=== PATIENT | male | born 1950 | race Two or more races ===

== ENCOUNTER 2020-06-23 11:02 | Inpatient (IN) | payer MEDICARE, OTHER ==
[2020-06-23] VITALS (29 sets, daily range): BP systolic 48–159; BP diastolic 31–74
[~2020-06-23] VITALS: Ht 182.9 cm; Wt 86.9 kg
[2020-06-23] MEDS ORDERED: IV NORMAL SALINE 1000ML BAG 1,000 ML IV ONE (11:15)
[2020-06-23] MEDS ORDERED: MIDAZOLAM HCL/PF 5 MG/5 ML VIAL. IV ONE (11:15)
[2020-06-23] MEDS ORDERED: VECURONIUM BROMIDE 50 MG in TOTAL VOLUME 50 ML IV PRN (11:15)
[2020-06-23] MEDS: NOREPINEPHRINE VIAL 8 MG in IV DEXTROSE 5% 250 ML IV PRN (11:48)
[2020-06-23] MEDS: MIDAZOLAM 100mg/100ml NS BAG 100 ML IV PRN ×2 (11:48→22:40)
[2020-06-23] MEDS: CHLORHEXIDINE 0.12% 15 ML MOUTHWASH. MM SCH ×2 (12:00→21:21)
[2020-06-23] MEDS ORDERED: ACETAMINOPHEN 650 MG/20.3 ML SOLUTION. PEG PRN (12:30)
[2020-06-23 12:36] LABS: HEMATOCRIT 35.5 % (39.0-53.0); HEMOGLOBIN 11.9 g/dL (13.0-17.5); RED BLOOD COUNT 3.75 x10^6/uL (4.30-5.70); RED CELL DISTRIBUTION WIDTH 14.8 % (11.5-14.5)
--- NOTE | 2020-06-23 12:40 | PDOC ---
Date and Time Called for central linefor fluids/meds Covid+ On ventilator and sedation Chlorasept prep, large drape N95m Eye protection, double gloved R subclavian 1st attempt Wire 3 lumen. Sutured at 16cm, biopatch and sterile dressing CXR ordered Current Medications Current Medications Norepinephrine Bitartrate 8 mg/ Dextrose 258 ml @ 16.641 mls/ hr CONT PRN IV PER PROTOCOL Last administered on 06/23/20at 11:48; Start 06/23/20 at 11:15 Midazolam HCl (Versed) 5 mg 1X ONCE IV Last administered on 06/23/20at 11:48; Start 06/23/20 at 11:15; Stop 06/23/20 at 11:18; Status DC Sodium Chloride 1,000 ml @ 1,000 mls/hr 1X ONCE IV Last administered on 06/23/20at 11:51; Start 06/23/20 at 11:15; Stop 06/23/20 at 12:14; Status DC Vecuronium [place] 50 mg/ Miscellaneous 50 ml @ 4.128 mls/ hr CONT PRN IV SEE I/O RECORD; Start 06/23/20 at 11:15 Fentanyl Citrate 30 ml @ 0 mls/hr CONT PRN IV SEE PROTOCOL Last administered on 06/23/20at 11:46; Start 06/23/20 at 11:15 Chlorhexidine Gluconate (Peridex) 15 ml BID MM ; Start 06/23/20 at 12:00 Midazolam HCl 100 ml @ 0 mls/hr CONT PRN IV SEE PROTOCOL Last administered on 06/23/20at 11:48; Start 06/23/20 at 11:15 Methylprednisolone Sodium Succinate (SOLU-Medrol 125MG VIAL) 125 mg Q8HRS IV ; Start 06/23/20 at 14:00 Enoxaparin Sodium (Lovenox 40mg Syringe) 40 mg Q24H SQ ; Start 06/23/20 at 12:30; Status UNV Divalproex Sodium (Depakote) 125 mg BID PO ; Start 06/23/20 at 21:00; Status UNV Quetiapine Fumarate (SEROquel) 150 mg BID PO ; Start 06/23/20 at 21:00; Status UNV Pramipexole Dihydrochloride (miraPEX) 0.5 mg BID PO ; Start 06/23/20 at 21:00; Status UNV Acetaminophen (Tylenol) 650 mg Q4H PRN PEG MILD PAIN / TEMP > 100.3'F; Start 06/23/20 at 12:30; Status UNV LAST VITALS Vital Signs Date Time Temp Pulse Resp B/P (MAP) Pulse Ox O2 Delivery O2 Flow Rate FiO2 06/23/20 11:46 26 06/23/20 10:50 80 Ventilator YANICK GRIFFITH MD Jun 23, 2020 12:40
[2020-06-23] MEDS ORDERED: ASPI-630 PO (12:44)
[2020-06-23] MEDS ORDERED: ACET325T21 PO (12:44)
[2020-06-23 12:46] LABS: BASE EXCESS COOX -4 mmol/L (-3-3); HCO3 COOX 20 mmol/L (21-28); METHEMOGLOBIN 0.3 % (0.0-1.9); OXYHEMOGLOBIN 87.8 %; PCO2 COOX 32 mmHg (35-46); PO2 COOX 58 mmHg (65-108); SAT O2 COOX 88 % (92-99)
[2020-06-23] MEDS ORDERED: CHOL500021 PO (12:46)
[2020-06-23] MEDS ORDERED: DIVA500T2 PO (12:49)
[2020-06-23 12:53] LABS: CALCIUM 7.8 mg/dL (8.5-10.1); CREATININE 1.2 mg/dL (0.7-1.3); GFR 59.7; POTASSIUM 4.4 mmol/L (3.5-5.1)
[2020-06-23] MEDS ORDERED: SIMV40TA18 PO (12:55)
[2020-06-23] MEDS ORDERED: FINA5TAB4 PO (12:55)
[2020-06-23] MEDS ORDERED: MIRT15TA PO (12:55)
[2020-06-23] MEDS ORDERED: FLUO40CA2 PO (12:55)
[2020-06-23] MEDS ORDERED: MEMA10TA PO (12:55)
[2020-06-23] MEDS ORDERED: DONE10TA61 PO (12:55)
[2020-06-23] MEDS ORDERED: TRAZ-123 PO (12:55)
[2020-06-23] MEDS ORDERED: PRAM0.255 PO (12:55)
[2020-06-23] MEDS ORDERED: QUET400T52 PO (12:55)
[2020-06-23] MEDS ORDERED: OLAN2.5T3 PO (12:55)
[2020-06-23] MEDS: DIVALPROEX DELAYED RELEASE 250 MG TABLET.DR. PO SCH ×2 (13:00→21:00)
[2020-06-23] MEDS ORDERED: ENOXAPARIN 40 MG/0.4 ML SYRINGE. SQ SCH ×2 (13:00→21:00)
[2020-06-23 13:06] LABS: ALBUMIN 1.6 g/dL (3.4-5.0); ALBUMIN/GLOBULIN RATIO 0.3 (1.0-1.7); TOTAL BILIRUBIN 0.7 mg/dL (0.2-1.0); TOTAL PROTEIN 6.2 g/dL (6.4-8.2)
[2020-06-23] MEDS ORDERED: PIP/TAZO PER PHARMACY MC PRN (13:15)
--- NOTE | 2020-06-23 13:40 | RAD ---
CHEST AP ONLY 06/23/2020 12:17 PM INDICATION: Intubated COMPARISON: 06/23/2020 TECHNIQUE: Portable frontal view of the chest is provided. FINDINGS: The cardiomediastinal silhouette is similar in appearance. Endotracheal tube terminates 4.4 cm above the level of the pretty. Right upper extremity PICC is identified with the distal tip projecting over the proximal superior vena cava. Nasogastric tube is identified within distal tip terminating in the stomach. Small right pleural effusion. Trace left pleural effusion. There is adjacent compressive atelectasis versus infiltrate. Moderate to advanced pulmonary vascular congestion. No pneumothorax. There is ill-definition of the aortic knob, improved since the prior examination. No suspicious osseous abnormality. IMPRESSION: Endotracheal tube, right upper extremity PICC and nasogastric tube are in similar position. Ulceration of findings may be seen with congestive heart failure. Ill-definition along the aortic knob appears improving. Electronically signed by: Jackie Chavez MD (06/23/2020 1:37 PM) [id number]
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
--- NOTE | 2020-06-23 13:45 | NUR ---
spoke with the patients with Odell ROGERS. She stated that she did not want CPR, medication, or shock but would like for him to remain on the vent for a while to see if he can recover. Dr Jackson made aware of her decision.
--- NOTE | 2020-06-23 14:10 | PDOC ---
Date and Time CXR. Tip in SVC, no pneumothorax Current Medications Current Medications Norepinephrine Bitartrate 8 mg/ Dextrose 258 ml @ 16.641 mls/ hr CONT PRN IV PER PROTOCOL Last administered on 06/23/20at 11:48; Start 06/23/20 at 11:15 Midazolam HCl (Versed) 5 mg 1X ONCE IV Last administered on 06/23/20at 11:48; Start 06/23/20 at 11:15; Stop 06/23/20 at 11:18; Status DC Sodium Chloride 1,000 ml @ 1,000 mls/hr 1X ONCE IV Last administered on 06/23/20at 11:51; Start 06/23/20 at 11:15; Stop 06/23/20 at 12:14; Status DC Vecuronium [place] 50 mg/ Miscellaneous 50 ml @ 4.128 mls/ hr CONT PRN IV SEE I/O RECORD; Start 06/23/20 at 11:15 Fentanyl Citrate 30 ml @ 0 mls/hr CONT PRN IV SEE PROTOCOL Last administered on 06/23/20at 11:46; Start 06/23/20 at 11:15 Chlorhexidine Gluconate (Peridex) 15 ml BID MM ; Start 06/23/20 at 12:00 Midazolam HCl 100 ml @ 0 mls/hr CONT PRN IV SEE PROTOCOL Last administered on 06/23/20at 11:48; Start 06/23/20 at 11:15 Methylprednisolone Sodium Succinate (SOLU-Medrol 125MG VIAL) 125 mg Q8HRS IV ; Start 06/23/20 at 14:00 Enoxaparin Sodium (Lovenox 40mg Syringe) 40 mg Q24H SQ ; Start 06/23/20 at 13:00; Stop 06/23/20 at 13:18; Status DC Divalproex Sodium (Depakote) 125 mg BID PO ; Start 06/23/20 at 13:00 Quetiapine Fumarate (SEROquel) 150 mg BID PO ; Start 06/23/20 at 21:00 Pramipexole Dihydrochloride (miraPEX) 0.5 mg BID PO ; Start 06/23/20 at 21:00 Acetaminophen (Tylenol) 650 mg Q4H PRN PEG MILD PAIN / TEMP > 100.3'F; Start 06/23/20 at 12:30 Piperacillin Sod/ Tazobactam Sod (Zosyn Per Pharmacy) 1 each PRN DAILY PRN MC SEE COMMENTS; Start 06/23/20 at 13:15 Piperacillin Sod/ Tazobactam Sod 3.375 gm/Sodium Chloride 50 ml @ 100 mls/hr Q6HRS IV ; Start 06/23/20 at 13:30 Enoxaparin Sodium (Lovenox 40mg Syringe) 40 mg BID SQ ; Start 06/23/20 at 21:00 Active Scripts Active Reported Trazodone Hcl 100 Mg Tablet 100 Mg PO HS Simvastatin 40 Mg Tablet 40 Mg PO HS Quetiapine Fumarate ER (Quetiapine Fumarate) 400 Mg Tab.er.24h 150 Mg PO BID Mirapex (Pramipexole Di-Hcl) 0.25 Mg Tablet 0.5 Mg PO BID Zyprexa (Olanzapine) 2.5 Mg Tablet 2.5 Mg PO DAILY Remeron (Mirtazapine) 15 Mg Tablet 7.5 Mg PO DAILY Namenda (Memantine Hcl) 10 Mg Tablet 10 Mg PO DAILY Fluoxetine Hcl 40 Mg Capsule 40 Mg PO DAILY Finasteride 5 Mg Tablet 5 Mg PO DAILY Aricept (Donepezil Hcl) 10 Mg Tablet 1 Tab PO QHS 30 Days Depakote (Divalproex Sodium) 500 Mg Tablet.dr 125 Mg PO DAILY D3-50 (Cholecalciferol (Vitamin D3)) 50,000 Unit Capsule 50,000 Unit PO WEEKLY Aspirin 81 Mg Tab.chew 1 Tab PO DAILY Acetaminophen 325 Mg Tablet 2 Tab PO PRN Q4-6HRS PRN 24 Days Pertinent Labs/Test Laboratory Tests Test 06/23/20 12:30 06/23/20 12:40 White Blood Count 9.0 x10^3/uL (4.0-11.0) Red Blood Count 3.75 x10^6/uL (4.30-5.70) Hemoglobin 11.9 g/dL (13.0-17.5) Hematocrit 35.5 % (39.0-53.0) Mean Corpuscular Volume 95 fL (79-100) Mean Corpuscular Hemoglobin 32 pg (25-35) Mean Corpuscular Hemoglobin Concent 33 g/dL (31-37) Red Cell Distribution Width 14.8 % (11.5-14.5) Platelet Count 172 x10^3/uL (140-400) Sodium Level 144 mmol/L (136-145) Potassium Level 4.4 mmol/L (3.5-5.1) Chloride Level 109 mmol/L (98-107) Carbon Dioxide Level 23 mmol/L (21-32) Anion Gap 12 (6-14) Blood Urea Nitrogen 30 mg/dL (8-26) Creatinine 1.2 mg/dL (0.7-1.3) Estimated GFR (Cockcroft-Gault) 59.7 BUN/Creatinine Ratio 25 (6-20) Glucose Level 136 mg/dL (70-99) Lactic Acid Level 3.3 mmol/L (0.4-2.0) Calcium Level 7.8 mg/dL (8.5-10.1) Total Bilirubin 0.7 mg/dL (0.2-1.0) Aspartate Amino Transf (AST/SGOT) 201 U/L (15-37) Alanine Aminotransferase (ALT/SGPT) 165 U/L (16-63) Alkaline Phosphatase 165 U/L (46-116) C-Reactive Protein, Quantitative 339.8 mg/L (0-3.3) Total Protein 6.2 g/dL (6.4-8.2) Albumin 1.6 g/dL (3.4-5.0) Albumin/Globulin Ratio 0.3 (1.0-1.7) O2 Saturation 88 % (92-99) Arterial Blood pH 7.41 (7.35-7.45) Arterial Blood pCO2 at Patient Temp 32 mmHg (35-46) Arterial Blood pO2 at Patient Temp 58 mmHg (65-108) Arterial Blood HCO3 20 mmol/L (21-28) Arterial Blood Base Excess -4 mmol/L (-3-3) Oxyhemoglobin 87.8 % Methemoglobin 0.3 % (0.0-1.9) Carbon Monoxide, Quantitative 0.3 % (0.0-1.9) FiO2 100 Laboratory Tests Test 06/23/20 12:30 06/23/20 12:40 White Blood Count 9.0 x10^3/uL (4.0-11.0) Red Blood Count 3.75 x10^6/uL (4.30-5.70) Hemoglobin 11.9 g/dL (13.0-17.5) Hematocrit 35.5 % (39.0-53.0) Mean Corpuscular Volume 95 fL (79-100) Mean Corpuscular Hemoglobin 32 pg (25-35) Mean Corpuscular Hemoglobin Concent 33 g/dL (31-37) Red Cell Distribution Width 14.8 % (11.5-14.5) Platelet Count 172 x10^3/uL (140-400) Sodium Level 144 mmol/L (136-145) Potassium Level 4.4 mmol/L (3.5-5.1) Chloride Level 109 mmol/L (98-107) Carbon Dioxide Level 23 mmol/L (21-32) Anion Gap 12 (6-14) Blood Urea Nitrogen 30 mg/dL (8-26) Creatinine 1.2 mg/dL (0.7-1.3) Estimated GFR (Cockcroft-Gault) 59.7 BUN/Creatinine Ratio 25 (6-20) Glucose Level 136 mg/dL (70-99) Lactic Acid Level 3.3 mmol/L (0.4-2.0) Calcium Level 7.8 mg/dL (8.5-10.1) Total Bilirubin 0.7 mg/dL (0.2-1.0) Aspartate Amino Transf (AST/SGOT) 201 U/L (15-37) Alanine Aminotransferase (ALT/SGPT) 165 U/L (16-63) Alkaline Phosphatase 165 U/L (46-116) C-Reactive Protein, Quantitative 339.8 mg/L (0-3.3) Total Protein 6.2 g/dL (6.4-8.2) Albumin 1.6 g/dL (3.4-5.0) Albumin/Globulin Ratio 0.3 (1.0-1.7) O2 Saturation 88 % (92-99) Arterial Blood pH 7.41 (7.35-7.45) Arterial Blood pCO2 at Patient Temp 32 mmHg (35-46) Arterial Blood pO2 at Patient Temp 58 mmHg (65-108) Arterial Blood HCO3 20 mmol/L (21-28) Arterial Blood Base Excess -4 mmol/L (-3-3) Oxyhemoglobin 87.8 % Methemoglobin 0.3 % (0.0-1.9) Carbon Monoxide, Quantitative 0.3 % (0.0-1.9) FiO2 100 LAST VITALS Vital Signs Date Time Temp Pulse Resp B/P (MAP) Pulse Ox O2 Delivery O2 Flow Rate FiO2 06/23/20 12:53 91 Ventilator 06/23/20 12:30 93 119/68 (85) 06/23/20 11:46 26 06/23/20 11:00 97.8 97.8 YANICK GRIFFITH MD Jun 23, 2020 14:10
[2020-06-23] MEDS: PIPERACILLIN/TAZOBACTAM 3.375 GM in IV NORMAL SALINE 50ML 50 ML IV SCH ×2 (14:19→20:20)
[2020-06-23] MEDS: methylPREDNISolone SOD SUCC PF 125 MG/2 ML VIAL. IV SCH ×2 (14:19→21:21)
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
[2020-06-23] MEDS: QUEtiapine 100 MG TABLET. PO SCH (21:21)
[2020-06-23] MEDS: PRAMIPEXOLE 0.25 MG TABLET. PO SCH (21:21)
[2020-06-24] VITALS (25 sets, daily range): BP systolic 92–134; BP diastolic 48–72
[2020-06-24] MEDS: PIPERACILLIN/TAZOBACTAM 3.375 GM in IV NORMAL SALINE 50ML 50 ML IV SCH ×5 (00:05→23:38)
[2020-06-24] MEDS: methylPREDNISolone SOD SUCC PF 125 MG/2 ML VIAL. IV SCH ×3 (06:25→20:46)
[2020-06-24 06:39] LABS: BASO % 0 % (0-3); EOS % 0 % (0-3); HEMATOCRIT 31.2 % (39.0-53.0); HEMOGLOBIN 10.4 g/dL (13.0-17.5); LYMPH # 0.4 x10^3/uL (1.0-4.8); LYMPH % 5 % (24-48); MEAN CORPUSCULAR HEMOGLOBIN 32 pg (25-35); MEAN CORPUSCULAR HGB CONC 33 g/dL (31-37); MEAN CORPUSCULAR VOLUME 95 fL (79-100); MONO # 0.1 x10^3/uL (0.0-1.1); MONO % 2 % (0-9); NEUT # 6.6 x10^3/uL (1.8-7.7); NEUT % 93 % (31-73); PLATELET COUNT 133 x10^3/uL (140-400); RED BLOOD COUNT 3.29 x10^6/uL (4.30-5.70); RED CELL DISTRIBUTION WIDTH 14.9 % (11.5-14.5)
[2020-06-24 06:53] LABS: CALCIUM 7.9 mg/dL (8.5-10.1); CREATININE 1.1 mg/dL (0.7-1.3); MAGNESIUM 2.5 mg/dL (1.8-2.4); POTASSIUM 4.5 mmol/L (3.5-5.1)
--- NOTE | 2020-06-24 07:46 | PDOC ---
Infectious Disease Note Vital Sign Vital Signs Vital Signs Date Time Temp Pulse Resp B/P (MAP) Pulse Ox O2 Delivery O2 Flow Rate FiO2 06/24/20 04:06 95 Ventilator 06/24/20 04:00 97.6 47 18 107/59 (75) 97.6 Labs Lab Laboratory Tests Test 06/23/20 12:30 06/23/20 12:40 06/23/20 15:50 06/24/20 04:45 White Blood Count 9.0 x10^3/uL (4.0-11.0) 7.0 x10^3/uL (4.0-11.0) Red Blood Count 3.75 x10^6/uL (4.30-5.70) 3.29 x10^6/uL (4.30-5.70) Hemoglobin 11.9 g/dL (13.0-17.5) 10.4 g/dL (13.0-17.5) Hematocrit 35.5 % (39.0-53.0) 31.2 % (39.0-53.0) Mean Corpuscular Volume 95 fL (79-100) 95 fL (79-100) Mean Corpuscular Hemoglobin 32 pg (25-35) 32 pg (25-35) Mean Corpuscular Hemoglobin Concent 33 g/dL (31-37) 33 g/dL (31-37) Red Cell Distribution Width 14.8 % (11.5-14.5) 14.9 % (11.5-14.5) Platelet Count 172 x10^3/uL (140-400) 133 x10^3/uL (140-400) D-Dimer (Leora) > 20.00 ug/mlFEU Sodium Level 144 mmol/L (136-145) 147 mmol/L (136-145) Potassium Level 4.4 mmol/L (3.5-5.1) 4.5 mmol/L (3.5-5.1) Chloride Level 109 mmol/L (98-107) 112 mmol/L (98-107) Carbon Dioxide Level 23 mmol/L (21-32) 26 mmol/L (21-32) Anion Gap 12 (6-14) 9 (6-14) Blood Urea Nitrogen 30 mg/dL (8-26) 26 mg/dL (8-26) Creatinine 1.2 mg/dL (0.7-1.3) 1.1 mg/dL (0.7-1.3) Estimated GFR (Cockcroft-Gault) 59.7 66.0 BUN/Creatinine Ratio 25 (6-20) Glucose Level 136 mg/dL (70-99) 184 mg/dL (70-99) Lactic Acid Level 3.3 mmol/L (0.4-2.0) 2.4 mmol/L (0.4-2.0) Calcium Level 7.8 mg/dL (8.5-10.1) 7.9 mg/dL (8.5-10.1) Total Bilirubin 0.7 mg/dL (0.2-1.0) Aspartate Amino Transf (AST/SGOT) 201 U/L (15-37) Alanine Aminotransferase (ALT/SGPT) 165 U/L (16-63) Alkaline Phosphatase 165 U/L (46-116) C-Reactive Protein, Quantitative 339.8 mg/L (0-3.3) Total Protein 6.2 g/dL (6.4-8.2) Albumin 1.6 g/dL (3.4-5.0) Albumin/Globulin Ratio 0.3 (1.0-1.7) O2 Saturation 88 % (92-99) Arterial Blood pH 7.41 (7.35-7.45) Arterial Blood pCO2 at Patient Temp 32 mmHg (35-46) Arterial Blood pO2 at Patient Temp 58 mmHg (65-108) Arterial Blood HCO3 20 mmol/L (21-28) Arterial Blood Base Excess -4 mmol/L (-3-3) Oxyhemoglobin 87.8 % Methemoglobin 0.3 % (0.0-1.9) Carbon Monoxide, Quantitative 0.3 % (0.0-1.9) FiO2 100 Neutrophils (%) (Auto) 93 % (31-73) Lymphocytes (%) (Auto) 5 % (24-48) Monocytes (%) (Auto) 2 % (0-9) Eosinophils (%) (Auto) 0 % (0-3) Basophils (%) (Auto) 0 % (0-3) Neutrophils # (Auto) 6.6 x10^3/uL (1.8-7.7) Lymphocytes # (Auto) 0.4 x10^3/uL (1.0-4.8) Monocytes # (Auto) 0.1 x10^3/uL (0.0-1.1) Eosinophils # (Auto) 0.0 x10^3/uL (0.0-0.7) Basophils # (Auto) 0.0 x10^3/uL (0.0-0.2) Magnesium Level 2.5 mg/dL (1.8-2.4) Objective Assessment Hypotension - improving on min Levophed. Previous neg Blood and urine cults 06/14 Acute Hypoxic Resp failure - intubated on 100 % Fi02 and 12 of PEEP Lacitic acidosis Transaminitis - ? reactive +/- Covid COVID + 06/16/06/18 Alzheimers Deafness S/p code Has received zosyn/vanc and Augmentin prior transfer Plan Plan of Care Cont Zosyn Not a Remdesivir candidate on vent Cont Steroids per pulm Plasma ordered F/u labs and cults Check Troponin Critically ill 35 mins Reviewed [facility] notes Thank you # [id number] SHAWNEE DUDLEY MD Jun 24, 2020 07:45
[2020-06-24 08:00] LABS: BASE EXCESS ABG -2 mmol/L (-3-3); HCO3 ABG 22 mmol/L (21-28); PCO2 ABG 36 mmHg (35-46); PO2 ABG 107 mmHg (65-108); SAT O2 ABG 98 % (92-99)
[2020-06-24 08:04] LABS: FIO2 ABG 100
[2020-06-24] MEDS ORDERED: PANTOPRAZOLE IV PUSH 40 MG VIAL. IVP ONE (08:45)
--- NOTE | 2020-06-24 08:45 | PDOC ---
PULMONARY PROGRESS NOTES DATE: 06/24/20 TIME: 08:45 Subjective Patient sedated 80% FiO2 assist control ventilation Vitals Vital Signs Date Time Temp Pulse Resp B/P (MAP) Pulse Ox O2 Delivery O2 Flow Rate FiO2 06/24/20 08:00 97.5 45 18 103/59 (74) 100 Ventilator 97.5 Comments Patient seen doing the pandemic, on visual exam he is in sync with the ventilator no paroxysmal breathing pattern no significant edema Labs Laboratory Tests Test 06/23/20 12:30 06/23/20 12:40 06/23/20 15:50 06/24/20 04:45 White Blood Count 9.0 x10^3/uL (4.0-11.0) 7.0 x10^3/uL (4.0-11.0) Red Blood Count 3.75 x10^6/uL (4.30-5.70) 3.29 x10^6/uL (4.30-5.70) Hemoglobin 11.9 g/dL (13.0-17.5) 10.4 g/dL (13.0-17.5) Hematocrit 35.5 % (39.0-53.0) 31.2 % (39.0-53.0) Mean Corpuscular Volume 95 fL (79-100) 95 fL (79-100) Mean Corpuscular Hemoglobin 32 pg (25-35) 32 pg (25-35) Mean Corpuscular Hemoglobin Concent 33 g/dL (31-37) 33 g/dL (31-37) Red Cell Distribution Width 14.8 % (11.5-14.5) 14.9 % (11.5-14.5) Platelet Count 172 x10^3/uL (140-400) 133 x10^3/uL (140-400) D-Dimer (Leora) > 20.00 ug/mlFEU Sodium Level 144 mmol/L (136-145) 147 mmol/L (136-145) Potassium Level 4.4 mmol/L (3.5-5.1) 4.5 mmol/L (3.5-5.1) Chloride Level 109 mmol/L (98-107) 112 mmol/L (98-107) Carbon Dioxide Level 23 mmol/L (21-32) 26 mmol/L (21-32) Anion Gap 12 (6-14) 9 (6-14) Blood Urea Nitrogen 30 mg/dL (8-26) 26 mg/dL (8-26) Creatinine 1.2 mg/dL (0.7-1.3) 1.1 mg/dL (0.7-1.3) Estimated GFR (Cockcroft-Gault) 59.7 66.0 BUN/Creatinine Ratio 25 (6-20) Glucose Level 136 mg/dL (70-99) 184 mg/dL (70-99) Lactic Acid Level 3.3 mmol/L (0.4-2.0) 2.4 mmol/L (0.4-2.0) Calcium Level 7.8 mg/dL (8.5-10.1) 7.9 mg/dL (8.5-10.1) Total Bilirubin 0.7 mg/dL (0.2-1.0) Aspartate Amino Transf (AST/SGOT) 201 U/L (15-37) Alanine Aminotransferase (ALT/SGPT) 165 U/L (16-63) Alkaline Phosphatase 165 U/L (46-116) C-Reactive Protein, Quantitative 339.8 mg/L (0-3.3) Total Protein 6.2 g/dL (6.4-8.2) Albumin 1.6 g/dL (3.4-5.0) Albumin/Globulin Ratio 0.3 (1.0-1.7) O2 Saturation 88 % (92-99) Arterial Blood pH 7.41 (7.35-7.45) Arterial Blood pCO2 at Patient Temp 32 mmHg (35-46) Arterial Blood pO2 at Patient Temp 58 mmHg (65-108) Arterial Blood HCO3 20 mmol/L (21-28) Arterial Blood Base Excess -4 mmol/L (-3-3) Oxyhemoglobin 87.8 % Methemoglobin 0.3 % (0.0-1.9) Carbon Monoxide, Quantitative 0.3 % (0.0-1.9) FiO2 100 Neutrophils (%) (Auto) 93 % (31-73) Lymphocytes (%) (Auto) 5 % (24-48) Monocytes (%) (Auto) 2 % (0-9) Eosinophils (%) (Auto) 0 % (0-3) Basophils (%) (Auto) 0 % (0-3) Neutrophils # (Auto) 6.6 x10^3/uL (1.8-7.7) Lymphocytes # (Auto) 0.4 x10^3/uL (1.0-4.8) Monocytes # (Auto) 0.1 x10^3/uL (0.0-1.1) Eosinophils # (Auto) 0.0 x10^3/uL (0.0-0.7) Basophils # (Auto) 0.0 x10^3/uL (0.0-0.2) Magnesium Level 2.5 mg/dL (1.8-2.4) Test 06/24/20 07:45 O2 Saturation 98 % (92-99) Arterial Blood pH 7.41 (7.35-7.45) Arterial Blood pCO2 at Patient Temp 36 mmHg (35-46) Arterial Blood pO2 at Patient Temp 107 mmHg (65-108) Arterial Blood HCO3 22 mmol/L (21-28) Arterial Blood Base Excess -2 mmol/L (-3-3) FiO2 100 Laboratory Tests Test 06/23/20 12:30 06/23/20 12:40 06/23/20 15:50 06/24/20 04:45 White Blood Count 9.0 x10^3/uL (4.0-11.0) 7.0 x10^3/uL (4.0-11.0) Red Blood Count 3.75 x10^6/uL (4.30-5.70) 3.29 x10^6/uL (4.30-5.70) Hemoglobin 11.9 g/dL (13.0-17.5) 10.4 g/dL (13.0-17.5) Hematocrit 35.5 % (39.0-53.0) 31.2 % (39.0-53.0) Mean Corpuscular Volume 95 fL (79-100) 95 fL (79-100) Mean Corpuscular Hemoglobin 32 pg (25-35) 32 pg (25-35) Mean Corpuscular Hemoglobin Concent 33 g/dL (31-37) 33 g/dL (31-37) Red Cell Distribution Width 14.8 % (11.5-14.5) 14.9 % (11.5-14.5) Platelet Count 172 x10^3/uL (140-400) 133 x10^3/uL (140-400) D-Dimer (Leora) > 20.00 ug/mlFEU Sodium Level 144 mmol/L (136-145) 147 mmol/L (136-145) Potassium Level 4.4 mmol/L (3.5-5.1) 4.5 mmol/L (3.5-5.1) Chloride Level 109 mmol/L (98-107) 112 mmol/L (98-107) Carbon Dioxide Level 23 mmol/L (21-32) 26 mmol/L (21-32) Anion Gap 12 (6-14) 9 (6-14) Blood Urea Nitrogen 30 mg/dL (8-26) 26 mg/dL (8-26) Creatinine 1.2 mg/dL (0.7-1.3) 1.1 mg/dL (0.7-1.3) Estimated GFR (Cockcroft-Gault) 59.7 66.0 BUN/Creatinine Ratio 25 (6-20) Glucose Level 136 mg/dL (70-99) 184 mg/dL (70-99) Lactic Acid Level 3.3 mmol/L (0.4-2.0) 2.4 mmol/L (0.4-2.0) Calcium Level 7.8 mg/dL (8.5-10.1) 7.9 mg/dL (8.5-10.1) Total Bilirubin 0.7 mg/dL (0.2-1.0) Aspartate Amino Transf (AST/SGOT) 201 U/L (15-37) Alanine Aminotransferase (ALT/SGPT) 165 U/L (16-63) Alkaline Phosphatase 165 U/L (46-116) C-Reactive Protein, Quantitative 339.8 mg/L (0-3.3) Total Protein 6.2 g/dL (6.4-8.2) Albumin 1.6 g/dL (3.4-5.0) Albumin/Globulin Ratio 0.3 (1.0-1.7) O2 Saturation 88 % (92-99) Arterial Blood pH 7.41 (7.35-7.45) Arterial Blood pCO2 at Patient Temp 32 mmHg (35-46) Arterial Blood pO2 at Patient Temp 58 mmHg (65-108) Arterial Blood HCO3 20 mmol/L (21-28) Arterial Blood Base Excess -4 mmol/L (-3-3) Oxyhemoglobin 87.8 % Methemoglobin 0.3 % (0.0-1.9) Carbon Monoxide, Quantitative 0.3 % (0.0-1.9) FiO2 100 Neutrophils (%) (Auto) 93 % (31-73) Lymphocytes (%) (Auto) 5 % (24-48) Monocytes (%) (Auto) 2 % (0-9) Eosinophils (%) (Auto) 0 % (0-3) Basophils (%) (Auto) 0 % (0-3) Neutrophils # (Auto) 6.6 x10^3/uL (1.8-7.7) Lymphocytes # (Auto) 0.4 x10^3/uL (1.0-4.8) Monocytes # (Auto) 0.1 x10^3/uL (0.0-1.1) Eosinophils # (Auto) 0.0 x10^3/uL (0.0-0.7) Basophils # (Auto) 0.0 x10^3/uL (0.0-0.2) Magnesium Level 2.5 mg/dL (1.8-2.4) Test 06/24/20 07:45 O2 Saturation 98 % (92-99) Arterial Blood pH 7.41 (7.35-7.45) Arterial Blood pCO2 at Patient Temp 36 mmHg (35-46) Arterial Blood pO2 at Patient Temp 107 mmHg (65-108) Arterial Blood HCO3 22 mmol/L (21-28) Arterial Blood Base Excess -2 mmol/L (-3-3) FiO2 100 Medications Active Scripts Medications Dose Route/Sig Max Daily Dose Days Date Category Trazodone Hcl 100 Mg Tablet 100 Mg PO HS 06/23/20 Reported Simvastatin 40 Mg Tablet 40 Mg PO HS 06/23/20 Reported Quetiapine Fumarate ER (Quetiapine Fumarate) 400 Mg Tab.er.24h 150 Mg PO BID 06/23/20 Reported Mirapex (Pramipexole Di-Hcl) 0.25 Mg Tablet 0.5 Mg PO BID 06/23/20 Reported Zyprexa (Olanzapine) 2.5 Mg Tablet 2.5 Mg PO DAILY 06/23/20 Reported Remeron (Mirtazapine) 15 Mg Tablet 7.5 Mg PO DAILY 06/23/20 Reported Namenda (Memantine Hcl) 10 Mg Tablet 10 Mg PO DAILY 06/23/20 Reported Fluoxetine Hcl 40 Mg Capsule 40 Mg PO DAILY 06/23/20 Reported Finasteride 5 Mg Tablet 5 Mg PO DAILY 06/23/20 Reported Aricept (Donepezil Hcl) 10 Mg Tablet 1 Tab PO QHS 30 06/23/20 Reported Depakote (Divalproex Sodium) 500 Mg Tablet.dr 125 Mg PO DAILY 06/23/20 Reported D3-50 (Cholecalciferol (Vitamin D3)) 50,000 Unit Capsule 50,000 Unit PO WEEKLY 06/23/20 Reported Aspirin 81 Mg Tab.chew 1 Tab PO DAILY 06/23/20 Reported Acetaminophen 325 Mg Tablet 2 Tab PO PRN Q4-6HRS PRN 24 06/23/20 Reported Impression . IMPRESSION: 1. Acute hypoxic respiratory failure secondary to code blue and COVID-19 pneumonia/acute respiratory distress syndrome. 2. Status post code blue. 3. Abnormal chest x-ray with diffuse lung infiltrates consistent with COVID-19 pneumonia. 4. COVID-19 positive. 5. Abnormal LFTs, l 6. Underlying psychiatric illnesses. 7. Elevated d-dimer Plan . Continue current support Titrate FiO2 IV steroid Status post convalescent plasma Monitor lab Full dose anticoagulate Total cumulative critical care time of 30-minute JIL RAUSCH MD Jun 24, 2020 08:45
[2020-06-24] MEDS: NOREPINEPHRINE VIAL 8 MG in IV DEXTROSE 5% 250 ML IV PRN (08:52)
[2020-06-24] MEDS: DIVALPROEX SPRINKLES 125 MG CAPSULE. PO SCH ×2 (08:52→20:46)
[2020-06-24] MEDS: QUEtiapine 100 MG TABLET. PO SCH ×2 (08:52→20:46)
[2020-06-24] MEDS: PRAMIPEXOLE 0.25 MG TABLET. PO SCH ×2 (08:52→20:46)
[2020-06-24] MEDS: fentaNYL HIGH DOSE PCA 55 ML IV PRN (08:53)
[2020-06-24] MEDS ORDERED: PANTOPRAZOLE IV PUSH 40 MG VIAL. IVP SCH (09:00)
--- NOTE | 2020-06-24 09:24 | CONS ---
DATE OF CONSULTATION: 06/24/2020 INFECTIOUS DISEASE CONSULTATION PATIENT'S ROOM: ICU 10. REQUESTING PHYSICIAN: Emmett Bray MD REASON FOR CONSULTATION: COVID pneumonia. HISTORY OF PRESENT ILLNESS: The patient is a 69-year-old gentleman, currently intubated, sedated, unable to provide any past medical history, history of present illness or review of systems. The patient is a 69-year-old gentleman who also has major depression and Alzheimer's disease, who was a resident at [facility]. Apparently, he was combative and agitated and was tested positive for COVID and was transferred to the inpatient hospital for quarantine and droplet. A repeat COVID test was obtained on the that was positive. He had been given doses of Zosyn, but then changed to Augmentin; however, he also received vancomycin and dexamethasone, starting approximately 06/17. Apparently, he became unresponsive, hypoxic and lost his pulses for approximately 2 minutes. He underwent CPR. He was initially bagged but then intubated and was transferred to [facility] for further care and evaluation. Zosyn has been continued. He has been placed on high dose Solu-Medrol. Plasma has been ordered. Currently, he has on 100% FiO2, 12 of PEEP. PAST MEDICAL HISTORY: Positive for severe bilateral sensorineural deafness, hyperlipidemia, obesity, restless leg, BPH, major depression and Alzheimer's disease. REVIEW OF SYSTEMS: Unobtainable. ALLERGIES: LISTED RABEPRAZOLE AND DIAZEPAM. SOCIAL HISTORY: He is a resident at a nursing facility. No tobacco or alcohol. FAMILY HISTORY: Noncontributory. CURRENT MEDICATIONS: Include fentanyl, norepinephrine, Zosyn, Depakote, delayed release Lovenox, Solu-Medrol, Versed, Zosyn, Mirapex and Seroquel. PHYSICAL EXAMINATION: VITAL SIGNS: He is afebrile, temperature 97.6, pulse 45, respirations 18, blood pressure 105/58, 100% FiO2 and 12 of PEEP. HEENT: Pupils are small, equal. Normal conjunctivae. NECK: Supple. LUNGS: Decreased in the bases. HEART: S1, S2. ABDOMEN: Soft, no guarding, no rebound. EXTREMITIES: Without clubbing or cyanosis. No gross edema. SKIN: Warm without signs of rash. IVs, he has a right subclavian line and also a peripheral line that is clean. He has mitts on in place. LABORATORY DATA: White count 7, hemoglobin 10.4, platelets 133, neutrophils 93, lymphs are 5. Creatinine of 1.1. AST was 201, ALT 165, alk phos 165, albumin of 1.6. CRP of 339.8. Lactic acid of 2.4. Chest x-ray from the 7th, moderate to advanced pulmonary vascular congestion. IMPRESSION: 1. Hypotension that is improving, on minimal Levophed now. 2. Acute hypoxic respiratory failure, intubated on 100% FiO2 and 12 of PEEP. 3. Lactic acidosis. 4. Transaminitis, possible reactive, plus or minus COVID. 5. COVID positive on 06/16/2020, 06/18/2020. 6. Alzheimer's. 7. Deafness. 8. Status post code. Also, has received Zosyn, vancomycin and Augmentin prior to transfer. RECOMMENDATIONS: For now, continue Zosyn, not a remdesivir candidate. He is on the vent. We will continue steroids per Pulmonary. Plasma ordered. Follow up labs and cultures. Check troponin. He is critically ill. I spent 35 minutes of critical care time. I did review Reanna's notes. Thank you for allowing me to participate in the patient's care. If you have any questions, please do not hesitate to contact me. SHAWNEE DUDLEY MD DR: DAMARIS/aleshia JOB#: [id number] / [id number] KRISTINA
[2020-06-24 09:46] LABS: % LYMPHS 10 % (24-48); % MONOS 1 % (0-10); % SEGS 89 % (35-66); OVALOCYTES FEW; PLT ESTIMATE ADEQUATE (ADEQUATE); POLYCHROMASIA SLIGHT
--- NOTE | 2020-06-24 10:24 | PN ---
DATE: 06/24/2020 SUBJECTIVE: The patient continued to be heavily sedated, intubated and mechanically ventilated. He is also on Levophed. PHYSICAL EXAMINATION: GENERAL: On examining him, he looked pale, no jaundice or cyanosis. No lymphadenopathy, no thyromegaly. No jugular venous distention. No lower limb edema. VITAL SIGNS: His heart rate was 45, blood pressure was 103/59, temperature 97.5, respiratory rate was 18, and oxygen saturation was 100% on FiO2 of 50%. HEENT: Normocephalic, atraumatic. He has orotracheal and orogastric tube in place. NECK: Supple. CARDIAC: Normal first and second heart sounds. No gallop or murmur. CHEST: Showed central trachea, equal bilateral chest expansion, air entry, vesicular breath sounds. I could not appreciate any crepitation or rhonchi anteriorly. ABDOMEN: Distended, soft, nontender. No guarding or rigidity. No organomegaly. All hernial orifices are intact. Bowel sounds normal. NEUROLOGIC: He is heavily sedated. His intake over the last 24 hours and output were incompletely recorded. LABORATORY DATA: His lab work this morning showed a white cell count 7000, hemoglobin 10, hematocrit 31, MCV 95, and platelet count of 133,000. His blood gases this morning showed a pH of 7.41, pCO2 of 36, pO2 of 107, bicarbonate 22 and oxygen saturation was 98% on FiO2 of 100%. His D-dimer was high, more than 20. His chemistry showed a serum sodium of 147, potassium 4.5, chloride 112, bicarbonate 26, anion gap of 9, BUN 26, creatinine 1.1, estimated GFR was 66 mL per minute, his glucose 194, lactic acid was slightly high at 2.4 as of yesterday and his calcium was 7.9, magnesium 2.5. The C-reactive protein was 339.8 mg/dL. ASSESSMENT: 1. COVID-19 pneumonia plus minus healthcare-associated pneumonia. 2. Acute hypoxic respiratory failure for which he was intubated and mechanically ventilated. 3. Sepsis with lactic acidosis that is improving. The patient is afebrile. His white cell count is normal and lactic acid is down to 2.4 as of yesterday. 4. Other medical problems include: A. Hypertension. B. Hyperlipidemia. C. Benign prostatic hypertrophy. D. Restless legs syndrome. E. Bilateral sensorineural deafness. F. Hypernatremia. PLAN: Obviously to start him on Jevity at 50 mL per hour with water flushes at 200 mL every 4 hours. Meanwhile, we will continue with all other medications including Zosyn, Protonix for GI prophylaxis. I did order bilateral venous Doppler ultrasound of both lower extremities and he is now on a therapeutic dose of Lovenox. CARMEN GOODMAN MD DR: MARCOS/aleshia JOB#: [id number] / [id number]
[2020-06-24] MEDS: MIDAZOLAM 100mg/100ml NS BAG 100 ML IV PRN (14:09)
--- NOTE | 2020-06-24 14:26 | NUR ---
SS following for discharge planning. SS reviewed pt chart and discussed with pt RN. Pt is from [facility]. COVID19 positive. Pt on the vent and IV Zosyn. SS will continue to follow for discharge planning.
--- NOTE | 2020-06-24 23:04 | RAD ---
EXAMINATION: VENOUS LOWER EXT BILATERAL HISTORY: Bilateral leg swelling. Elevated d-dimer. COMPARISON/CORRELATION: None FINDINGS: Bilateral lower extremity duplex venous ultrasound exam was performed. Grayscale, color Doppler, and spectral Doppler imaging was performed. Compression and augmentation was performed. The right common femoral vein, superficial femoral vein, popliteal vein, and saphenofemoral junction are normal with no evidence of deep venous thrombus. There is occlusive thrombus involving the right posterior tibial vein and right peroneal vein however. The left common femoral vein, superficial femoral vein, popliteal vein, and saphenofemoral junction are normal with no evidence of deep venous thrombus. The visualized calf veins are unremarkable. Normal compressibility and augmentation is evident. IMPRESSION: Occlusive thrombus of the right posterior tibial and right peroneal vein. No left lower extremity DVT. On 06/24/2020 at 11:00 PM, results reported to the patient's nurse Princess. Electronically signed by: Aurelio Rogers MD (06/24/2020 11:01 PM) [id number]
[2020-06-25] VITALS (27 sets, daily range): BP systolic 84–125; BP diastolic 48–68
[2020-06-25 06:07] LABS: BASO # 0.1 x10^3/uL (0.0-0.2); BASO % 1 % (0-3); EOS % 0 % (0-3); HEMATOCRIT 30.6 % (39.0-53.0); HEMOGLOBIN 10.2 g/dL (13.0-17.5); LYMPH # 0.2 x10^3/uL (1.0-4.8); LYMPH % 2 % (24-48); MEAN CORPUSCULAR HEMOGLOBIN 32 pg (25-35); MEAN CORPUSCULAR HGB CONC 34 g/dL (31-37); MEAN CORPUSCULAR VOLUME 96 fL (79-100); MONO # 0.1 x10^3/uL (0.0-1.1); MONO % 1 % (0-9); NEUT # 8.4 x10^3/uL (1.8-7.7); NEUT % 96 % (31-73); PLATELET COUNT 139 x10^3/uL (140-400); RED BLOOD COUNT 3.21 x10^6/uL (4.30-5.70); RED CELL DISTRIBUTION WIDTH 15.2 % (11.5-14.5); WHITE BLOOD COUNT 8.8 x10^3/uL (4.0-11.0)
[2020-06-25] MEDS: PIPERACILLIN/TAZOBACTAM 3.375 GM in IV NORMAL SALINE 50ML 50 ML IV SCH ×3 (06:15→18:01)
[2020-06-25] MEDS: methylPREDNISolone SOD SUCC PF 125 MG/2 ML VIAL. IV SCH ×3 (06:16→21:30)
[2020-06-25] MEDS: MIDAZOLAM 100mg/100ml NS BAG 100 ML IV PRN ×2 (06:16→20:01)
[2020-06-25 06:28] LABS: ALBUMIN 1.3 g/dL (3.4-5.0); ALBUMIN/GLOBULIN RATIO 0.3 (1.0-1.7); CALCIUM 8.1 mg/dL (8.5-10.1); CREATININE 1.1 mg/dL (0.7-1.3); POTASSIUM 4.7 mmol/L (3.5-5.1); TOTAL BILIRUBIN 0.9 mg/dL (0.2-1.0); TOTAL PROTEIN 5.8 g/dL (6.4-8.2)
--- NOTE | 2020-06-25 07:39 | PDOC ---
Infectious Disease Note Subjective Subjective Intubated/sedated ROS ROS unable to obtain Vital Sign Vital Signs Vital Signs Date Time Temp Pulse Resp B/P (MAP) Pulse Ox O2 Delivery O2 Flow Rate FiO2 06/25/20 07:00 53 18 107/61 (76) 96 Ventilator 06/25/20 04:00 98.4 98.4 Physical Exam PHYSICAL EXAM GEN: Intubated and sedated HEENT: Pupils are small, equal. Normal conjunctivae. NECK: Supple. LUNGS: Decreased in the bases. HEART: S1, S2. ABDOMEN: Soft, no guarding, no rebound. EXTREMITIES: Without clubbing or cyanosis. No gross edema. He has mitts on in place SKIN: Warm without signs of rash. IVs, he has a right subclavian line and also a peripheral line that is clean. . Labs Lab Laboratory Tests Test 06/24/20 07:45 06/25/20 05:40 O2 Saturation 98 % (92-99) Arterial Blood pH 7.41 (7.35-7.45) Arterial Blood pCO2 at Patient Temp 36 mmHg (35-46) Arterial Blood pO2 at Patient Temp 107 mmHg (65-108) Arterial Blood HCO3 22 mmol/L (21-28) Arterial Blood Base Excess -2 mmol/L (-3-3) FiO2 100 White Blood Count 8.8 x10^3/uL (4.0-11.0) Red Blood Count 3.21 x10^6/uL (4.30-5.70) Hemoglobin 10.2 g/dL (13.0-17.5) Hematocrit 30.6 % (39.0-53.0) Mean Corpuscular Volume 96 fL (79-100) Mean Corpuscular Hemoglobin 32 pg (25-35) Mean Corpuscular Hemoglobin Concent 34 g/dL (31-37) Red Cell Distribution Width 15.2 % (11.5-14.5) Platelet Count 139 x10^3/uL (140-400) Neutrophils (%) (Auto) 96 % (31-73) Lymphocytes (%) (Auto) 2 % (24-48) Monocytes (%) (Auto) 1 % (0-9) Eosinophils (%) (Auto) 0 % (0-3) Basophils (%) (Auto) 1 % (0-3) Neutrophils # (Auto) 8.4 x10^3/uL (1.8-7.7) Lymphocytes # (Auto) 0.2 x10^3/uL (1.0-4.8) Monocytes # (Auto) 0.1 x10^3/uL (0.0-1.1) Eosinophils # (Auto) 0.0 x10^3/uL (0.0-0.7) Basophils # (Auto) 0.1 x10^3/uL (0.0-0.2) Sodium Level 147 mmol/L (136-145) Potassium Level 4.7 mmol/L (3.5-5.1) Chloride Level 113 mmol/L (98-107) Carbon Dioxide Level 27 mmol/L (21-32) Anion Gap 7 (6-14) Blood Urea Nitrogen 34 mg/dL (8-26) Creatinine 1.1 mg/dL (0.7-1.3) Estimated GFR (Cockcroft-Gault) 66.0 BUN/Creatinine Ratio 31 (6-20) Glucose Level 155 mg/dL (70-99) Calcium Level 8.1 mg/dL (8.5-10.1) Total Bilirubin 0.9 mg/dL (0.2-1.0) Aspartate Amino Transf (AST/SGOT) 30 U/L (15-37) Alanine Aminotransferase (ALT/SGPT) 81 U/L (16-63) Alkaline Phosphatase 117 U/L (46-116) Total Protein 5.8 g/dL (6.4-8.2) Albumin 1.3 g/dL (3.4-5.0) Albumin/Globulin Ratio 0.3 (1.0-1.7) Objective Assessment Hypotension - stable on min Levophed. Previous neg Blood and urine cults 06/14 Acute Hypoxic Resp failure - intubated on 100 % Fi02 and 12 of PEEP Lacitic acidosis Transaminitis - ? reactive +/- Covid =- better COVID + 06/16//. S/p Plasma 06/24. On steorids RLE DVT Alzheimers Deafness S/p code -elevated troponin Severe Protein malnutrition Has received zosyn/vanc and Augmentin prior transfer Plan Plan of Care Cont Zosyn Not a Remdesivir candidate on vent Cont Steroids per pulm F/u labs and cults Check Troponin per primary Critically ill d/w nursing SHAWNEE DUDLEY MD Jun 25, 2020 07:39
[2020-06-25] MEDS: PANTOPRAZOLE IV PUSH 40 MG VIAL. IVP SCH (08:21)
[2020-06-25] MEDS: QUEtiapine 100 MG TABLET. PO SCH ×2 (08:22→21:23)
[2020-06-25] MEDS: PRAMIPEXOLE 0.25 MG TABLET. PO SCH ×2 (08:22→21:23)
[2020-06-25] MEDS: DIVALPROEX SPRINKLES 125 MG CAPSULE. PO SCH ×2 (08:22→21:23)
--- NOTE | 2020-06-25 08:39 | PDOC ---
PULMONARY PROGRESS NOTES DATE: 06/25/20 TIME: 08:38 Subjective Patient sedated, increase FiO2 requirement currently on 12 of PEEP Vitals Vital Signs Date Time Temp Pulse Resp B/P (MAP) Pulse Ox O2 Delivery O2 Flow Rate FiO2 06/25/20 08:06 96 Ventilator 06/25/20 08:00 98.2 54 18 109/62 (78) 98.2 Comments Patient seen doing the pandemic, on visual exam he is in sync with the ventilator no paroxysmal breathing pattern no significant edema Labs Laboratory Tests Test 06/23/20 12:30 06/23/20 12:40 06/23/20 15:50 06/24/20 04:45 White Blood Count 9.0 x10^3/uL (4.0-11.0) 7.0 x10^3/uL (4.0-11.0) Red Blood Count 3.75 x10^6/uL (4.30-5.70) 3.29 x10^6/uL (4.30-5.70) Hemoglobin 11.9 g/dL (13.0-17.5) 10.4 g/dL (13.0-17.5) Hematocrit 35.5 % (39.0-53.0) 31.2 % (39.0-53.0) Mean Corpuscular Volume 95 fL (79-100) 95 fL (79-100) Mean Corpuscular Hemoglobin 32 pg (25-35) 32 pg (25-35) Mean Corpuscular Hemoglobin Concent 33 g/dL (31-37) 33 g/dL (31-37) Red Cell Distribution Width 14.8 % (11.5-14.5) 14.9 % (11.5-14.5) Platelet Count 172 x10^3/uL (140-400) 133 x10^3/uL (140-400) D-Dimer (Leora) > 20.00 ug/mlFEU Sodium Level 144 mmol/L (136-145) 147 mmol/L (136-145) Potassium Level 4.4 mmol/L (3.5-5.1) 4.5 mmol/L (3.5-5.1) Chloride Level 109 mmol/L (98-107) 112 mmol/L (98-107) Carbon Dioxide Level 23 mmol/L (21-32) 26 mmol/L (21-32) Anion Gap 12 (6-14) 9 (6-14) Blood Urea Nitrogen 30 mg/dL (8-26) 26 mg/dL (8-26) Creatinine 1.2 mg/dL (0.7-1.3) 1.1 mg/dL (0.7-1.3) Estimated GFR (Cockcroft-Gault) 59.7 66.0 BUN/Creatinine Ratio 25 (6-20) Glucose Level 136 mg/dL (70-99) 184 mg/dL (70-99) Lactic Acid Level 3.3 mmol/L (0.4-2.0) 2.4 mmol/L (0.4-2.0) Calcium Level 7.8 mg/dL (8.5-10.1) 7.9 mg/dL (8.5-10.1) Total Bilirubin 0.7 mg/dL (0.2-1.0) Aspartate Amino Transf (AST/SGOT) 201 U/L (15-37) Alanine Aminotransferase (ALT/SGPT) 165 U/L (16-63) Alkaline Phosphatase 165 U/L (46-116) C-Reactive Protein, Quantitative 339.8 mg/L (0-3.3) Total Protein 6.2 g/dL (6.4-8.2) Albumin 1.6 g/dL (3.4-5.0) Albumin/Globulin Ratio 0.3 (1.0-1.7) O2 Saturation 88 % (92-99) Arterial Blood pH 7.41 (7.35-7.45) Arterial Blood pCO2 at Patient Temp 32 mmHg (35-46) Arterial Blood pO2 at Patient Temp 58 mmHg (65-108) Arterial Blood HCO3 20 mmol/L (21-28) Arterial Blood Base Excess -4 mmol/L (-3-3) Oxyhemoglobin 87.8 % Methemoglobin 0.3 % (0.0-1.9) Carbon Monoxide, Quantitative 0.3 % (0.0-1.9) FiO2 100 Neutrophils (%) (Auto) 93 % (31-73) Lymphocytes (%) (Auto) 5 % (24-48) Monocytes (%) (Auto) 2 % (0-9) Eosinophils (%) (Auto) 0 % (0-3) Basophils (%) (Auto) 0 % (0-3) Neutrophils # (Auto) 6.6 x10^3/uL (1.8-7.7) Lymphocytes # (Auto) 0.4 x10^3/uL (1.0-4.8) Monocytes # (Auto) 0.1 x10^3/uL (0.0-1.1) Eosinophils # (Auto) 0.0 x10^3/uL (0.0-0.7) Basophils # (Auto) 0.0 x10^3/uL (0.0-0.2) Segmented Neutrophils % 89 % (35-66) Lymphocytes % 10 % (24-48) Monocytes % 1 % (0-10) Platelet Estimate Adequate (ADEQUATE) Large Platelets Occ Polychromasia Slight Ovalocytes Few Magnesium Level 2.5 mg/dL (1.8-2.4) Troponin I Quantitative 0.173 ng/mL (0.000-0.055) Test 06/24/20 07:45 06/25/20 05:40 O2 Saturation 98 % (92-99) Arterial Blood pH 7.41 (7.35-7.45) Arterial Blood pCO2 at Patient Temp 36 mmHg (35-46) Arterial Blood pO2 at Patient Temp 107 mmHg (65-108) Arterial Blood HCO3 22 mmol/L (21-28) Arterial Blood Base Excess -2 mmol/L (-3-3) FiO2 100 White Blood Count 8.8 x10^3/uL (4.0-11.0) Red Blood Count 3.21 x10^6/uL (4.30-5.70) Hemoglobin 10.2 g/dL (13.0-17.5) Hematocrit 30.6 % (39.0-53.0) Mean Corpuscular Volume 96 fL (79-100) Mean Corpuscular Hemoglobin 32 pg (25-35) Mean Corpuscular Hemoglobin Concent 34 g/dL (31-37) Red Cell Distribution Width 15.2 % (11.5-14.5) Platelet Count 139 x10^3/uL (140-400) Neutrophils (%) (Auto) 96 % (31-73) Lymphocytes (%) (Auto) 2 % (24-48) Monocytes (%) (Auto) 1 % (0-9) Eosinophils (%) (Auto) 0 % (0-3) Basophils (%) (Auto) 1 % (0-3) Neutrophils # (Auto) 8.4 x10^3/uL (1.8-7.7) Lymphocytes # (Auto) 0.2 x10^3/uL (1.0-4.8) Monocytes # (Auto) 0.1 x10^3/uL (0.0-1.1) Eosinophils # (Auto) 0.0 x10^3/uL (0.0-0.7) Basophils # (Auto) 0.1 x10^3/uL (0.0-0.2) Sodium Level 147 mmol/L (136-145) Potassium Level 4.7 mmol/L (3.5-5.1) Chloride Level 113 mmol/L (98-107) Carbon Dioxide Level 27 mmol/L (21-32) Anion Gap 7 (6-14) Blood Urea Nitrogen 34 mg/dL (8-26) Creatinine 1.1 mg/dL (0.7-1.3) Estimated GFR (Cockcroft-Gault) 66.0 BUN/Creatinine Ratio 31 (6-20) Glucose Level 155 mg/dL (70-99) Calcium Level 8.1 mg/dL (8.5-10.1) Total Bilirubin 0.9 mg/dL (0.2-1.0) Aspartate Amino Transf (AST/SGOT) 30 U/L (15-37) Alanine Aminotransferase (ALT/SGPT) 81 U/L (16-63) Alkaline Phosphatase 117 U/L (46-116) Total Protein 5.8 g/dL (6.4-8.2) Albumin 1.3 g/dL (3.4-5.0) Albumin/Globulin Ratio 0.3 (1.0-1.7) Laboratory Tests Test 06/25/20 05:40 White Blood Count 8.8 x10^3/uL (4.0-11.0) Red Blood Count 3.21 x10^6/uL (4.30-5.70) Hemoglobin 10.2 g/dL (13.0-17.5) Hematocrit 30.6 % (39.0-53.0) Mean Corpuscular Volume 96 fL (79-100) Mean Corpuscular Hemoglobin 32 pg (25-35) Mean Corpuscular Hemoglobin Concent 34 g/dL (31-37) Red Cell Distribution Width 15.2 % (11.5-14.5) Platelet Count 139 x10^3/uL (140-400) Neutrophils (%) (Auto) 96 % (31-73) Lymphocytes (%) (Auto) 2 % (24-48) Monocytes (%) (Auto) 1 % (0-9) Eosinophils (%) (Auto) 0 % (0-3) Basophils (%) (Auto) 1 % (0-3) Neutrophils # (Auto) 8.4 x10^3/uL (1.8-7.7) Lymphocytes # (Auto) 0.2 x10^3/uL (1.0-4.8) Monocytes # (Auto) 0.1 x10^3/uL (0.0-1.1) Eosinophils # (Auto) 0.0 x10^3/uL (0.0-0.7) Basophils # (Auto) 0.1 x10^3/uL (0.0-0.2) Sodium Level 147 mmol/L (136-145) Potassium Level 4.7 mmol/L (3.5-5.1) Chloride Level 113 mmol/L (98-107) Carbon Dioxide Level 27 mmol/L (21-32) Anion Gap 7 (6-14) Blood Urea Nitrogen 34 mg/dL (8-26) Creatinine 1.1 mg/dL (0.7-1.3) Estimated GFR (Cockcroft-Gault) 66.0 BUN/Creatinine Ratio 31 (6-20) Glucose Level 155 mg/dL (70-99) Calcium Level 8.1 mg/dL (8.5-10.1) Total Bilirubin 0.9 mg/dL (0.2-1.0) Aspartate Amino Transf (AST/SGOT) 30 U/L (15-37) Alanine Aminotransferase (ALT/SGPT) 81 U/L (16-63) Alkaline Phosphatase 117 U/L (46-116) Total Protein 5.8 g/dL (6.4-8.2) Albumin 1.3 g/dL (3.4-5.0) Albumin/Globulin Ratio 0.3 (1.0-1.7) Medications Active Scripts Medications Dose Route/Sig Max Daily Dose Days Date Category Trazodone Hcl 100 Mg Tablet 100 Mg PO HS 9/7/20 Reported Simvastatin 40 Mg Tablet 40 Mg PO HS 06/23/20 Reported Quetiapine Fumarate ER (Quetiapine Fumarate) 400 Mg Tab.er.24h 150 Mg PO BID 06/23/20 Reported Mirapex (Pramipexole Di-Hcl) 0.25 Mg Tablet 0.5 Mg PO BID 06/23/20 Reported Zyprexa (Olanzapine) 2.5 Mg Tablet 2.5 Mg PO DAILY 06/23/20 Reported Remeron (Mirtazapine) 15 Mg Tablet 7.5 Mg PO DAILY 06/23/20 Reported Namenda (Memantine Hcl) 10 Mg Tablet 10 Mg PO DAILY 06/23/20 Reported Fluoxetine Hcl 40 Mg Capsule 40 Mg PO DAILY 06/23/20 Reported Finasteride 5 Mg Tablet 5 Mg PO DAILY 06/23/20 Reported Aricept (Donepezil Hcl) 10 Mg Tablet 1 Tab PO QHS 30 06/23/20 Reported Depakote (Divalproex Sodium) 500 Mg Tablet.dr 125 Mg PO DAILY 06/23/20 Reported D3-50 (Cholecalciferol (Vitamin D3)) 50,000 Unit Capsule 50,000 Unit PO WEEKLY 06/23/20 Reported Aspirin 81 Mg Tab.chew 1 Tab PO DAILY 06/23/20 Reported Acetaminophen 325 Mg Tablet 2 Tab PO PRN Q4-6HRS PRN 24 06/23/20 Reported Impression . IMPRESSION: 1. Acute hypoxic respiratory failure secondary to code blue and COVID-19 pneumonia/acute respiratory distress syndrome. 2. Status post code blue. 3. Abnormal chest x-ray with diffuse lung infiltrates consistent with COVID-19 pneumonia. 4. COVID-19 positive. 5. Abnormal LFTs, l 6. Underlying psychiatric illnesses. 7. Elevated d-dimer Plan . Continue current support, discussed with RN Titrate FiO2 for saturations above 94% IV steroid Status post convalescent plasma Monitor lab Full dose anticoagulate Total cumulative critical care time of 30-minute JIL RAUSCH MD Jun 25, 2020 08:39
[2020-06-25 09:01] LABS: BASE EXCESS ABG 0 mmol/L (-3-3); HCO3 ABG 25 mmol/L (21-28); PCO2 ABG 42 mmHg (35-46); PO2 ABG 85 mmHg (65-108); SAT O2 ABG 95 % (92-99)
[2020-06-25 09:03] LABS: FIO2 ABG 100
--- NOTE | 2020-06-25 12:03 | NUR ---
SS following up with discharge planning. SS reviewed pt chart and discussed with pt RN. COVID19 positive. Pt remains on the vent at this time. Pt on IV Zosyn. SS will continue to follow for discharge planning.
--- NOTE | 2020-06-25 12:09 | PN ---
DATE: 06/25/2020 SUBJECTIVE: The continued to be heavily sedated, intubated and mechanically ventilated. He continued to require Levophed. His venous Doppler ultrasound showed basal occlusive thrombus of the right posterior tibial and right peroneal vein. No left lower extremity DVT. The left common femoral vein, superficial femoral vein, popliteal vein, saphenofemoral junction are normal with no evidence of deep vein thrombosis. The visualized calf veins are unremarkable. Normal compressibility and augmentation is evident. OBJECTIVE: GENERAL: On examining him, he was pale, but no jaundice, cyanosis or thyromegaly. No jugular venous distention. No lower limb edema. VITAL SIGNS: His heart rate was 54, blood pressure was 106/62, temperature 98.2, respiratory rate was 18 and oxygen saturation was 95% on FiO2 of 100%. The rest of clinical exam is stable, has not really changed. LABORATORY DATA: His lab work this morning showed a white cell count of 8,800, hemoglobin 10, hematocrit 30, MCV 96, and platelet count of 139,000. His chemistry showed a serum sodium 147, potassium 4.7, chloride 113, bicarbonate 27, anion gap of 7, BUN 34, creatinine 1.1, estimated GFR was 66 mL per minute. His glucose 155, calcium was 8.1. Total bilirubin, AST, ALT, alkaline phosphatase were normal. His total protein was 5.8, albumin was 1.3. His troponin was 0.173. ASSESSMENT: 1. COVID-19 pneumonia plus minus healthcare-associated pneumonia. 2. Acute hypoxic respiratory failure for which he was intubated and mechanically ventilated. 3. Sepsis, lactic acidosis, improving. The patient is afebrile. His white cell count is down and lactic acid is down. 4. Other medical problems include: A. Hypertension. The patient is actually hypotensive and on Levophed. B. Hyperlipidemia. C. Benign prostatic hypertrophy. D. Restless legs syndrome. E. Bilateral sensorineural deafness. F. Hypernatremia. PLAN: To continue with mechanical ventilation. Continue with nutritional support in the form of tube feeding. Continue GI prophylaxis. Continue with DVT prophylaxis. He continues to be on and Zosyn. We will continue also with IV steroids and bronchodilator. CARMEN GOODMAN MD DR: MARCOS/aleshia JOB#: [id number] / [id number]
[2020-06-25] MEDS: fentaNYL HIGH DOSE PCA 55 ML IV PRN (15:26)
[2020-06-25] MEDS: NOREPINEPHRINE VIAL 8 MG in IV DEXTROSE 5% 250 ML IV PRN (17:25)
[2020-06-26] VITALS (24 sets, daily range): BP systolic 99–135; BP diastolic 52–74
[2020-06-26] MEDS: PIPERACILLIN/TAZOBACTAM 3.375 GM in IV NORMAL SALINE 50ML 50 ML IV SCH ×5 (00:18→23:53)
--- NOTE | 2020-06-26 02:09 | RAD ---
CHEST AP ONLY Clinical Indication: Reason: new crepitus 110 / Spl. Instructions: / History: Comparison: AP chest, 3 days ago. Findings: Endotracheal tube tip is about 5 cm above the pretty. Enteric tube courses below the left hemidiaphragm tip outside of [id number]. Right subclavian central line, tip in mid SVC. The cardiac silhouette is stable. Basilar predominant interstitial and alveolar opacities are unchanged. Left costophrenic angle is excluded. There is no pneumothorax. There is bilateral supraclavicular and neck subcutaneous air. Bones appear stable. IMPRESSION: 1. The life support devices are stable. 2. Basilar predominant interstitial and alveolar opacities are unchanged. 3. There is new bilateral supraclavicular and neck subcutaneous air. Electronically signed by: Felipe Clemente MD (06/26/2020 2:06 AM) [facility]
[2020-06-26 05:24] LABS: HEMATOCRIT 32.3 % (39.0-53.0); HEMOGLOBIN 10.5 g/dL (13.0-17.5); RED BLOOD COUNT 3.39 x10^6/uL (4.30-5.70); RED CELL DISTRIBUTION WIDTH 15.1 % (11.5-14.5)
[2020-06-26] MEDS: methylPREDNISolone SOD SUCC PF 125 MG/2 ML VIAL. IV SCH ×3 (05:38→21:01)
[2020-06-26 05:55] LABS: ALBUMIN 1.3 g/dL (3.4-5.0); ALBUMIN/GLOBULIN RATIO 0.3 (1.0-1.7); CALCIUM 8.5 mg/dL (8.5-10.1); GFR 73.7; POTASSIUM 4.9 mmol/L (3.5-5.1); TOTAL PROTEIN 6.1 g/dL (6.4-8.2)
--- NOTE | 2020-06-26 06:06 | NUR ---
Pt remains sedated on vent. New crepitus noted to right neck at 0000 assessment. CXR obtained with no PTX seen by radiologist. Dr Bray called and updated. No other changes in assessment overnight.
--- NOTE | 2020-06-26 07:22 | PDOC ---
Infectious Disease Note Subjective Subjective Intubated/sedated Vital Sign Vital Signs Vital Signs Date Time Temp Pulse Resp B/P (MAP) Pulse Ox O2 Delivery O2 Flow Rate FiO2 06/26/20 06:00 55 18 120/68 (85) 95 Ventilator 06/26/20 04:00 97.8 97.8 Physical Exam PHYSICAL EXAM GEN: Intubated and sedated HEENT: Pupils are small, equal. Normal conjunctivae. NECK: Supple.full on right side and mild crepitus LUNGS: Decreased in the bases. HEART: S1, S2. ABDOMEN: Soft, no guarding, no rebound. EXTREMITIES: Without clubbing or cyanosis. No gross edema. He has mitts on in place SKIN: Warm without signs of rash. IVs, he has a right subclavian line and also a peripheral line that is clean. . Labs Lab Laboratory Tests Test 06/25/20 08:10 06/26/20 00:09 06/26/20 05:00 O2 Saturation 95 % (92-99) Arterial Blood pH 7.39 (7.35-7.45) Arterial Blood pCO2 at Patient Temp 42 mmHg (35-46) Arterial Blood pO2 at Patient Temp 85 mmHg (65-108) Arterial Blood HCO3 25 mmol/L (21-28) Arterial Blood Base Excess 0 mmol/L (-3-3) FiO2 100 Glucose (Fingerstick) 157 mg/dL (70-99) White Blood Count 8.0 x10^3/uL (4.0-11.0) Red Blood Count 3.39 x10^6/uL (4.30-5.70) Hemoglobin 10.5 g/dL (13.0-17.5) Hematocrit 32.3 % (39.0-53.0) Mean Corpuscular Volume 96 fL (79-100) Mean Corpuscular Hemoglobin 31 pg (25-35) Mean Corpuscular Hemoglobin Concent 33 g/dL (31-37) Red Cell Distribution Width 15.1 % (11.5-14.5) Platelet Count 142 x10^3/uL (140-400) Sodium Level 147 mmol/L (136-145) Potassium Level 4.9 mmol/L (3.5-5.1) Chloride Level 111 mmol/L (98-107) Carbon Dioxide Level 30 mmol/L (21-32) Anion Gap 6 (6-14) Blood Urea Nitrogen 36 mg/dL (8-26) Creatinine 1.0 mg/dL (0.7-1.3) Estimated GFR (Cockcroft-Gault) 73.7 BUN/Creatinine Ratio 36 (6-20) Glucose Level 149 mg/dL (70-99) Calcium Level 8.5 mg/dL (8.5-10.1) Total Bilirubin 1.0 mg/dL (0.2-1.0) Aspartate Amino Transf (AST/SGOT) 27 U/L (15-37) Alanine Aminotransferase (ALT/SGPT) 66 U/L (16-63) Alkaline Phosphatase 164 U/L (46-116) Total Protein 6.1 g/dL (6.4-8.2) Albumin 1.3 g/dL (3.4-5.0) Albumin/Globulin Ratio 0.3 (1.0-1.7) Micro IMPRESSION: 1. The life support devices are stable. 2. Basilar predominant interstitial and alveolar opacities are unchanged. 3. There is new bilateral supraclavicular and neck subcutaneous air. Objective Assessment Hypotension - stable on min Levophed- trying to taper Previous neg Blood and urine cults 06/14 d/w micro Acute Hypoxic Resp failure - intubated on 80 % Fi02 and 12 of PEEP Lacitic acidosis SUB Q air about neck Transaminitis - ? reactive +/- Covid =- better COVID + 06/16//. S/p Plasma 06/24. On steorids RLE DVT Alzheimers Deafness S/p code -elevated troponin Severe Protein malnutrition Has received zosyn/vanc and Augmentin prior transfer Plan Plan of Care SubQ on CXR - d/w nursing and RT - to contact Pulm Cont Zosyn for now Not a Remdesivir candidate on vent Cont Steroids per pulm F/u labs Check Troponin per primary Critically ill d/w nursing SHAWNEE DUDLEY MD Jun 26, 2020 07:22
[2020-06-26 07:31] LABS: BASE EXCESS ABG 2 mmol/L (-3-3); HCO3 ABG 26 mmol/L (21-28); PCO2 ABG 42 mmHg (35-46); PO2 ABG 88 mmHg (65-108); SAT O2 ABG 96 % (92-99)
--- NOTE | 2020-06-26 08:15 | PDOC ---
PULMONARY PROGRESS NOTES DATE: 06/26/20 TIME: 08:15 Subjective Patient sedated, currently on 80%, 12 of PEEP Vitals Vital Signs Date Time Temp Pulse Resp B/P (MAP) Pulse Ox O2 Delivery O2 Flow Rate FiO2 06/26/20 07:07 97 Ventilator 06/26/20 07:00 54 18 120/70 (87) 06/26/20 04:00 97.8 97.8 Comments Patient seen doing the pandemic, on visual exam he is in sync with the ventilator no paroxysmal breathing pattern no significant edema On physical exam today he does have some subcutaneous emphysema that I felt minimal Labs Laboratory Tests Test 06/25/20 05:40 06/25/20 08:10 06/26/20 00:09 06/26/20 05:00 White Blood Count 8.8 x10^3/uL (4.0-11.0) 8.0 x10^3/uL (4.0-11.0) Red Blood Count 3.21 x10^6/uL (4.30-5.70) 3.39 x10^6/uL (4.30-5.70) Hemoglobin 10.2 g/dL (13.0-17.5) 10.5 g/dL (13.0-17.5) Hematocrit 30.6 % (39.0-53.0) 32.3 % (39.0-53.0) Mean Corpuscular Volume 96 fL (79-100) 96 fL (79-100) Mean Corpuscular Hemoglobin 32 pg (25-35) 31 pg (25-35) Mean Corpuscular Hemoglobin Concent 34 g/dL (31-37) 33 g/dL (31-37) Red Cell Distribution Width 15.2 % (11.5-14.5) 15.1 % (11.5-14.5) Platelet Count 139 x10^3/uL (140-400) 142 x10^3/uL (140-400) Neutrophils (%) (Auto) 96 % (31-73) Lymphocytes (%) (Auto) 2 % (24-48) Monocytes (%) (Auto) 1 % (0-9) Eosinophils (%) (Auto) 0 % (0-3) Basophils (%) (Auto) 1 % (0-3) Neutrophils # (Auto) 8.4 x10^3/uL (1.8-7.7) Lymphocytes # (Auto) 0.2 x10^3/uL (1.0-4.8) Monocytes # (Auto) 0.1 x10^3/uL (0.0-1.1) Eosinophils # (Auto) 0.0 x10^3/uL (0.0-0.7) Basophils # (Auto) 0.1 x10^3/uL (0.0-0.2) Sodium Level 147 mmol/L (136-145) 147 mmol/L (136-145) Potassium Level 4.7 mmol/L (3.5-5.1) 4.9 mmol/L (3.5-5.1) Chloride Level 113 mmol/L (98-107) 111 mmol/L (98-107) Carbon Dioxide Level 27 mmol/L (21-32) 30 mmol/L (21-32) Anion Gap 7 (6-14) 6 (6-14) Blood Urea Nitrogen 34 mg/dL (8-26) 36 mg/dL (8-26) Creatinine 1.1 mg/dL (0.7-1.3) 1.0 mg/dL (0.7-1.3) Estimated GFR (Cockcroft-Gault) 66.0 73.7 BUN/Creatinine Ratio 31 (6-20) 36 (6-20) Glucose Level 155 mg/dL (70-99) 149 mg/dL (70-99) Calcium Level 8.1 mg/dL (8.5-10.1) 8.5 mg/dL (8.5-10.1) Total Bilirubin 0.9 mg/dL (0.2-1.0) 1.0 mg/dL (0.2-1.0) Aspartate Amino Transf (AST/SGOT) 30 U/L (15-37) 27 U/L (15-37) Alanine Aminotransferase (ALT/SGPT) 81 U/L (16-63) 66 U/L (16-63) Alkaline Phosphatase 117 U/L (46-116) 164 U/L (46-116) Total Protein 5.8 g/dL (6.4-8.2) 6.1 g/dL (6.4-8.2) Albumin 1.3 g/dL (3.4-5.0) 1.3 g/dL (3.4-5.0) Albumin/Globulin Ratio 0.3 (1.0-1.7) 0.3 (1.0-1.7) O2 Saturation 95 % (92-99) Arterial Blood pH 7.39 (7.35-7.45) Arterial Blood pCO2 at Patient Temp 42 mmHg (35-46) Arterial Blood pO2 at Patient Temp 85 mmHg (65-108) Arterial Blood HCO3 25 mmol/L (21-28) Arterial Blood Base Excess 0 mmol/L (-3-3) FiO2 100 Glucose (Fingerstick) 157 mg/dL (70-99) Laboratory Tests Test 06/26/20 00:09 06/26/20 05:00 Glucose (Fingerstick) 157 mg/dL (70-99) White Blood Count 8.0 x10^3/uL (4.0-11.0) Red Blood Count 3.39 x10^6/uL (4.30-5.70) Hemoglobin 10.5 g/dL (13.0-17.5) Hematocrit 32.3 % (39.0-53.0) Mean Corpuscular Volume 96 fL (79-100) Mean Corpuscular Hemoglobin 31 pg (25-35) Mean Corpuscular Hemoglobin Concent 33 g/dL (31-37) Red Cell Distribution Width 15.1 % (11.5-14.5) Platelet Count 142 x10^3/uL (140-400) Sodium Level 147 mmol/L (136-145) Potassium Level 4.9 mmol/L (3.5-5.1) Chloride Level 111 mmol/L (98-107) Carbon Dioxide Level 30 mmol/L (21-32) Anion Gap 6 (6-14) Blood Urea Nitrogen 36 mg/dL (8-26) Creatinine 1.0 mg/dL (0.7-1.3) Estimated GFR (Cockcroft-Gault) 73.7 BUN/Creatinine Ratio 36 (6-20) Glucose Level 149 mg/dL (70-99) Calcium Level 8.5 mg/dL (8.5-10.1) Total Bilirubin 1.0 mg/dL (0.2-1.0) Aspartate Amino Transf (AST/SGOT) 27 U/L (15-37) Alanine Aminotransferase (ALT/SGPT) 66 U/L (16-63) Alkaline Phosphatase 164 U/L (46-116) Total Protein 6.1 g/dL (6.4-8.2) Albumin 1.3 g/dL (3.4-5.0) Albumin/Globulin Ratio 0.3 (1.0-1.7) Medications Active Scripts Medications Dose Route/Sig Max Daily Dose Days Date Category Trazodone Hcl 100 Mg Tablet 100 Mg PO HS 06/23/20 Reported Simvastatin 40 Mg Tablet 40 Mg PO HS 06/23/20 Reported Quetiapine Fumarate ER (Quetiapine Fumarate) 400 Mg Tab.er.24h 150 Mg PO BID 06/23/20 Reported Mirapex (Pramipexole Di-Hcl) 0.25 Mg Tablet 0.5 Mg PO BID 06/23/20 Reported Zyprexa (Olanzapine) 2.5 Mg Tablet 2.5 Mg PO DAILY 06/23/20 Reported Remeron (Mirtazapine) 15 Mg Tablet 7.5 Mg PO DAILY 06/23/20 Reported Namenda (Memantine Hcl) 10 Mg Tablet 10 Mg PO DAILY 06/23/20 Reported Fluoxetine Hcl 40 Mg Capsule 40 Mg PO DAILY 06/23/20 Reported Finasteride 5 Mg Tablet 5 Mg PO DAILY 06/23/20 Reported Aricept (Donepezil Hcl) 10 Mg Tablet 1 Tab PO QHS 30 06/23/20 Reported Depakote (Divalproex Sodium) 500 Mg Tablet.dr 125 Mg PO DAILY 06/23/20 Reported D3-50 (Cholecalciferol (Vitamin D3)) 50,000 Unit Capsule 50,000 Unit PO WEEKLY 06/23/20 Reported Aspirin 81 Mg Tab.chew 1 Tab PO DAILY 06/23/20 Reported Acetaminophen 325 Mg Tablet 2 Tab PO PRN Q4-6HRS PRN 24 06/23/20 Reported Impression . IMPRESSION: 1. Acute hypoxic respiratory failure secondary to code blue and COVID-19 pneumonia/acute respiratory distress syndrome. 2. Status post code blue. 3. Abnormal chest x-ray with diffuse lung infiltrates consistent with COVID-19 pneumonia. 4. COVID-19 positive. 5. Abnormal LFTs, l 6. Underlying psychiatric illnesses. 7. Elevated d-dimer 8. Subcutaneous emphysema suspect ruptured alveolar chest x-ray reveals no will decrease PEEP Plan . Decrease PEEP, review chest x-ray no pneumothorax. Subcutaneous emphysema noted Titrate FiO2 for saturations above 94% IV steroid Status post convalescent plasma Monitor lab Full dose anticoagulate Total cumulative critical care time of 30-minute JIL RAUSCH MD Jun 26, 2020 08:15
[2020-06-26] MEDS: PANTOPRAZOLE IV PUSH 40 MG VIAL. IVP SCH (09:00)
[2020-06-26] MEDS: QUEtiapine 100 MG TABLET. PO SCH ×2 (09:01→20:32)
[2020-06-26] MEDS: DIVALPROEX SPRINKLES 125 MG CAPSULE. PO SCH ×2 (09:01→20:32)
[2020-06-26] MEDS: PRAMIPEXOLE 0.25 MG TABLET. PO SCH ×2 (09:01→20:32)
[2020-06-26] MEDS: MIDAZOLAM 100mg/100ml NS BAG 100 ML IV PRN ×2 (09:02→23:53)
--- NOTE | 2020-06-26 10:21 | NUR ---
Dr. Desouza here to see the patient. Mentioned the subcutaneous air to him. No new orders. Monitor at this time.
--- NOTE | 2020-06-26 10:55 | PN ---
DATE: 06/26/2020 SUBJECTIVE: The patient is resting, almost flat in bed, in no apparent respiratory distress. He is intubated and mechanically ventilated. He is also sedated with Versed and he is on Versed as well as fentanyl drip. Clinically, his neck is markedly swollen and apparently chest x-ray showed that he has subcutaneous emphysema, although the patient has no pneumothorax, no pneumomediastinum on the chest x-ray. PHYSICAL EXAMINATION: GENERAL: When I examining him, he looked pale. No jaundice, cyanosis or thyromegaly. No jugular venous distention. No limb edema. VITAL SIGNS: His heart rate was 50, blood pressure was 119/67, temperature was 97.8, respiratory rate was 18 and oxygen saturation was 95% on FiO2 of 80%. HEENT: Showed normocephalic, atraumatic. Has orotracheal and orogastric tube in place. NECK: Markedly swollen with crepitus. HEART: Normal first and second heart sounds. No gallop or murmur. CHEST: Clear to auscultation. No crepitation or rhonchi anteriorly. ABDOMEN: Distended, soft. NEUROLOGIC: He is heavily sedated. His intake was 2590, output was 250. LABORATORY WORK: This morning showed his white cell count to be 8000, hemoglobin 10.5, hematocrit 32, MCV 96, and platelet count of 142,000. Serum sodium was 147, potassium 4.9, chloride 111, bicarbonate 30, anion gap of 6, BUN 36, creatinine 1, estimated GFR was 73 mL per minute. His glucose was 149, calcium was 8.5. Total bilirubin and AST normal. ALT and alkaline phosphatase slightly elevated. Total protein 6.1, albumin was 1.3. ASSESSMENT: 1. COVID-19 pneumonia plus minus healthcare-associated pneumonia. 2. Acute hypoxic respiratory failure, for which he was intubated and mechanically ventilated. 3. Sepsis with lactic acidosis, improving. The patient is afebrile. His white cell count is normal. Lactic acid is down. 4. Other medical problems include: A. Hypertension. The patient is actually hypotensive, on Levophed. B. Hyperlipidemia. C. Benign prostatic hypertrophy. D. Restless leg syndrome. E. Hypernatremia that is resolving slowly. PLAN: To continue with mechanical ventilation. Continue with nutritional support in the form of tube feeding. Continue with GI prophylaxis. Continue with DVT prophylaxis. Continue with IV antibiotic as well as steroids and bronchodilator. CARMEN GOODMAN MD DR: MARCOS/aleshia JOB#: [id number] / [id number]
[2020-06-26 11:22] LABS: FIO2 ABG 90/VENT
--- NOTE | 2020-06-26 15:03 | NUR ---
SS following up with discharge planning. SS reviewed pt chart and discussed with pt RN. COVID19 positive. Pt remains on the vent at this time. Pt on IV Zosyn. DNR. SS will continue to follow for discharge planning.
[2020-06-26] MEDS: fentaNYL HIGH DOSE PCA 55 ML IV PRN (18:58)
[2020-06-27] VITALS (24 sets, daily range): BP systolic 82–127; BP diastolic 48–69
[2020-06-27] MEDS: PIPERACILLIN/TAZOBACTAM 3.375 GM in IV NORMAL SALINE 50ML 50 ML IV SCH ×4 (05:57→23:59)
[2020-06-27] MEDS: methylPREDNISolone SOD SUCC PF 125 MG/2 ML VIAL. IV SCH ×3 (05:57→21:33)
[2020-06-27 07:52] LABS: BASE EXCESS ABG 2 mmol/L (-3-3); HCO3 ABG 27 mmol/L (21-28); PCO2 ABG 42 mmHg (35-46); PO2 ABG 64 mmHg (65-108); SAT O2 ABG 91 % (92-99)
--- NOTE | 2020-06-27 07:55 | PDOC ---
Infectious Disease Note Subjective Subjective Intubated/sedated Vital Sign Vital Signs Vital Signs Date Time Temp Pulse Resp B/P (MAP) Pulse Ox O2 Delivery O2 Flow Rate FiO2 06/27/20 07:40 91 Ventilator 06/27/20 06:00 56 18 101/64 (76) 06/27/20 04:00 97.6 97.6 Physical Exam PHYSICAL EXAM GEN: Intubated and sedated HEENT: Pupils are small, equal. Normal conjunctivae. NECK: Supple.full on right side and mild crepitus LUNGS: Decreased in the bases. HEART: S1, S2. ABDOMEN: Soft, no guarding, no rebound. EXTREMITIES: Without clubbing or cyanosis. No gross edema. He has mitts on in place SKIN: Warm without signs of rash. IVs, he has a right subclavian line and also a peripheral line that is clean. . Labs Lab Laboratory Tests Test 06/26/20 08:00 O2 Saturation 96 % (92-99) Arterial Blood pH 7.42 (7.35-7.45) Arterial Blood pCO2 at Patient Temp 42 mmHg (35-46) Arterial Blood pO2 at Patient Temp 88 mmHg (65-108) Arterial Blood HCO3 26 mmol/L (21-28) Arterial Blood Base Excess 2 mmol/L (-3-3) FiO2 90/vent Micro IMPRESSION: 1. The life support devices are stable. 2. Basilar predominant interstitial and alveolar opacities are unchanged. 3. There is new bilateral supraclavicular and neck subcutaneous air. Objective Assessment Hypotension - stable on min Levophed- trying to taper Previous neg Blood and urine cults 06/14 d/w micro Acute Hypoxic Resp failure - intubated on 80 % Fi02 and 10 of PEEP Lacitic acidosis SUB Q air about neck Transaminitis - ? reactive +/- Covid =- better COVID + 06/16/06/18. S/p Plasma 06/24. On steorids RLE DVT Alzheimers Deafness S/p code -elevated troponin Severe Protein malnutrition Has received zosyn/vanc and Augmentin prior transfer Plan Plan of Care Cont Zosyn for now Not a Remdesivir candidate on vent Cont Steroids per pulm F/u labs in am Check Troponin per primary Critically ill d/w nursing SHAWNEE DUDLEY MD Jun 27, 2020 07:54
--- NOTE | 2020-06-27 07:59 | RAD ---
PORTABLE CHEST 1V Clinical indications: Respiratory failure. Covid. Follow-up study. COMPARISON: June 26, 2020. Findings: Bilateral lung infiltrates more prominent within the lower lung zones are again evident and are unchanged. Minimal right-sided pleural effusion is stable. Extensive soft tissue emphysema is seen but no pneumothorax is evident. There have been no interval tube or line changes. Heart size is normal. Pneumomediastinum is again evident. Pulmonary vasculature is unremarkable. IMPRESSION: Stable bilateral lung infiltrates. Electronically signed by: Dom Rodriguez MD (06/27/2020 7:55 AM) [id number]
[2020-06-27] MEDS: PANTOPRAZOLE IV PUSH 40 MG VIAL. IVP SCH (08:08)
[2020-06-27] MEDS: DIVALPROEX SPRINKLES 125 MG CAPSULE. PO SCH ×2 (08:09→20:32)
[2020-06-27] MEDS: QUEtiapine 100 MG TABLET. PO SCH ×2 (08:12→20:32)
[2020-06-27 08:19] LABS: FIO2 ABG 50%
--- NOTE | 2020-06-27 08:31 | PDOC ---
PULMONARY PROGRESS NOTES DATE: 06/27/20 TIME: 08:31 Subjective Sedated AC mode Patient sedated, currently on 80%, 10 of PEEP Vitals Vital Signs Date Time Temp Pulse Resp B/P (MAP) Pulse Ox O2 Delivery O2 Flow Rate FiO2 06/27/20 07:40 91 Ventilator 06/27/20 06:00 56 18 101/64 (76) 06/27/20 04:00 97.6 97.6 Comments Patient seen doing the , on visual exam he is in sync with the ventilator no paroxysmal breathing pattern no significant edema On physical exam today he does have some subcutaneous emphysema that I felt minimal Labs Laboratory Tests Test 06/26/20 00:09 06/26/20 05:00 06/26/20 08:00 06/27/20 07:45 Glucose (Fingerstick) 157 mg/dL (70-99) White Blood Count 8.0 x10^3/uL (4.0-11.0) Red Blood Count 3.39 x10^6/uL (4.30-5.70) Hemoglobin 10.5 g/dL (13.0-17.5) Hematocrit 32.3 % (39.0-53.0) Mean Corpuscular Volume 96 fL (79-100) Mean Corpuscular Hemoglobin 31 pg (25-35) Mean Corpuscular Hemoglobin Concent 33 g/dL (31-37) Red Cell Distribution Width 15.1 % (11.5-14.5) Platelet Count 142 x10^3/uL (140-400) Sodium Level 147 mmol/L (136-145) Potassium Level 4.9 mmol/L (3.5-5.1) Chloride Level 111 mmol/L (98-107) Carbon Dioxide Level 30 mmol/L (21-32) Anion Gap 6 (6-14) Blood Urea Nitrogen 36 mg/dL (8-26) Creatinine 1.0 mg/dL (0.7-1.3) Estimated GFR (Cockcroft-Gault) 73.7 BUN/Creatinine Ratio 36 (6-20) Glucose Level 149 mg/dL (70-99) Calcium Level 8.5 mg/dL (8.5-10.1) Total Bilirubin 1.0 mg/dL (0.2-1.0) Aspartate Amino Transf (AST/SGOT) 27 U/L (15-37) Alanine Aminotransferase (ALT/SGPT) 66 U/L (16-63) Alkaline Phosphatase 164 U/L (46-116) Total Protein 6.1 g/dL (6.4-8.2) Albumin 1.3 g/dL (3.4-5.0) Albumin/Globulin Ratio 0.3 (1.0-1.7) O2 Saturation 96 % (92-99) 91 % (92-99) Arterial Blood pH 7.42 (7.35-7.45) 7.43 (7.35-7.45) Arterial Blood pCO2 at Patient Temp 42 mmHg (35-46) 42 mmHg (35-46) Arterial Blood pO2 at Patient Temp 88 mmHg (65-108) 64 mmHg (65-108) Arterial Blood HCO3 26 mmol/L (21-28) 27 mmol/L (21-28) Arterial Blood Base Excess 2 mmol/L (-3-3) 2 mmol/L (-3-3) FiO2 90/vent 50% Laboratory Tests Test 06/27/20 07:45 O2 Saturation 91 % (92-99) Arterial Blood pH 7.43 (7.35-7.45) Arterial Blood pCO2 at Patient Temp 42 mmHg (35-46) Arterial Blood pO2 at Patient Temp 64 mmHg (65-108) Arterial Blood HCO3 27 mmol/L (21-28) Arterial Blood Base Excess 2 mmol/L (-3-3) FiO2 50% Medications Active Scripts Medications Dose Route/Sig Max Daily Dose Days Date Category Trazodone Hcl 100 Mg Tablet 100 Mg PO HS 06/23/20 Reported Simvastatin 40 Mg Tablet 40 Mg PO HS 06/23/20 Reported Quetiapine Fumarate ER (Quetiapine Fumarate) 400 Mg Tab.er.24h 150 Mg PO BID 06/23/20 Reported Mirapex (Pramipexole Di-Hcl) 0.25 Mg Tablet 0.5 Mg PO BID 06/23/20 Reported Zyprexa (Olanzapine) 2.5 Mg Tablet 2.5 Mg PO DAILY 06/23/20 Reported Remeron (Mirtazapine) 15 Mg Tablet 7.5 Mg PO DAILY 06/23/20 Reported Namenda (Memantine Hcl) 10 Mg Tablet 10 Mg PO DAILY 06/23/20 Reported Fluoxetine Hcl 40 Mg Capsule 40 Mg PO DAILY 06/23/20 Reported Finasteride 5 Mg Tablet 5 Mg PO DAILY 06/23/20 Reported Aricept (Donepezil Hcl) 10 Mg Tablet 1 Tab PO QHS 30 06/23/20 Reported Depakote (Divalproex Sodium) 500 Mg Tablet.dr 125 Mg PO DAILY 06/23/20 Reported D3-50 (Cholecalciferol (Vitamin D3)) 50,000 Unit Capsule 50,000 Unit PO WEEKLY 06/23/20 Reported Aspirin 81 Mg Tab.chew 1 Tab PO DAILY 06/23/20 Reported Acetaminophen 325 Mg Tablet 2 Tab PO PRN Q4-6HRS PRN 24 06/23/20 Reported Impression . IMPRESSION: 1. Acute hypoxic respiratory failure secondary to code blue and COVID-19 pneumonia/acute respiratory distress syndrome. 2. Status post code blue. 3. Abnormal chest x-ray with diffuse lung infiltrates consistent with COVID-19 pneumonia. 4. COVID-19 positive. 5. Abnormal LFTs, l 6. Underlying psychiatric illnesses. 7. Elevated d-dimer 8. Subcutaneous emphysema suspect ruptured alveolar chest x-ray reveals no will decrease PEEP Plan . Chest x-ray reviewed no significant Continue current support Titrate FiO2 for saturations above 94% IV steroid Status post convalescent plasma Monitor lab Full dose anticoagulate Total cumulative critical care time of 30-minute JIL RAUSCH MD Jun 27, 2020 08:31
[2020-06-27 09:41] LABS: BASO % 0 % (0-3); EOS % 0 % (0-3); HEMOGLOBIN 10.1 g/dL (13.0-17.5); LYMPH # 0.1 x10^3/uL (1.0-4.8); LYMPH % 2 % (24-48); MEAN CORPUSCULAR HEMOGLOBIN 32 pg (25-35); MEAN CORPUSCULAR HGB CONC 34 g/dL (31-37); MEAN CORPUSCULAR VOLUME 95 fL (79-100); MONO # 0.1 x10^3/uL (0.0-1.1); MONO % 1 % (0-9); NEUT % 97 % (31-73); PLATELET COUNT 122 x10^3/uL (140-400); RED BLOOD COUNT 3.17 x10^6/uL (4.30-5.70); WHITE BLOOD COUNT 7.2 x10^3/uL (4.0-11.0)
[2020-06-27 09:48] LABS: PROTHROMBIN TIME PATIENT 15.7 SEC (11.7-14.0)
--- NOTE | 2020-06-27 10:10 | PN ---
DATE: 06/27/2020 SUBJECTIVE: The patient is resting, slightly propped up in bed, in no apparent distress, continues intubated and mechanically ventilated. He is on Versed and fentanyl drip. His Levophed is at a small dose and probably can be discontinued. Continued to have subcutaneous emphysema in his neck, although likely no pneumothorax or pneumomediastinum. Apparently, his spoke with the charge nurse and her plan was to withdraw care if there is no improvement by Tuesday. PHYSICAL EXAMINATION: GENERAL: When I examined him today, he looked pale, no jaundice, cyanosis, or thyromegaly. No jugular venous distension. No limb edema. VITAL SIGNS: Her heart rate was 56, blood pressure was 101/64, temperature was 97.6, respiratory rate was 18 and oxygen saturation was 91% on FiO2 of 80%. HEAD, EYES, EARS, NOSE AND THROAT: Normocephalic, atraumatic. He has orotracheal and orogastric tube in place. NECK: Supple. CARDIAC: Normal first and second heart sounds. No gallop or murmur. CHEST: Showed central trachea, equal bilateral expansion, air entry, vesicular breath sounds. I could not appreciate any crepitation or rhonchi anteriorly. ABDOMEN: Distended, soft, nontender. IMAGING DATA: His chest x-ray today showed that extensive soft tissue emphysema is seen, but no pneumothorax is evident. There has been no interval tube or line changes. Heart size is normal. New mediastinum is again evident. Pulmonary vasculature is unremarkable. ASSESSMENT: 1. COVID-19 pneumonia plus minus healthcare-associated pneumonia. 2. Acute hypoxic respiratory failure, subsequently intubated and mechanically ventilated. His oxygen requirement continued to be high, he is in FiO2 of 80%. 3. Sepsis with lactic acidosis, improved. The patient is afebrile. His white cell count is normal. Lactic acid is down. 4. Other medical problems include hypertension. A. The patient is actually hypotensive, on Levophed. B. Hyperlipidemia. C. Benign prostatic hypertrophy. D. Restless leg syndrome. E. Hypernatremia that is resolving slowly. As of this morning, her serum sodium was 147. PLAN: To continue with mechanical ventilation and sedation. Continue with IV antibiotic in the form of Zosyn. Continue with steroids, continue with Lovenox for treatment of DVT. His and apparently will make a decision by Tuesday to withdraw care. CARMEN GOODMAN MD DR: MARCOS/aleshia JOB#: [id number] / [id number]
[2020-06-27 10:14] LABS: CREATININE 0.8 mg/dL (0.7-1.3); GFR 95.3; POTASSIUM 5.1 mmol/L (3.5-5.1)
[2020-06-27] MEDS: PRAMIPEXOLE 0.25 MG TABLET. PO SCH ×2 (11:15→20:32)
--- NOTE | 2020-06-27 14:09 | NUR ---
SS following up with discharge planning. SS reviewed pt chart and discussed with pt RN. Pt remains on the vent at this time. COVID19 positive. DNR. Pt on IV Zosyn. Pt spouse may consider withdrawal of care if not improved by Tuesday. SS will continue to follow for discharge planning.
[2020-06-27] MEDS ORDERED: VECURONIUM BOLUS 10 MG VIAL. IV ONE (17:30)
--- NOTE | 2020-06-27 18:07 | RAD ---
Examination: PORTABLE CHEST 1V History: Reason: covid possitive; on vent; O2 sats decreasing / Spl. Instructions: / History: Comparison/Correlation: Chest x-ray exam performed earlier on the same day Findings: Portable frontal view of the chest was obtained. Marked subcutaneous emphysema involving the base of the neck in the chest noted. Enteric tube and endotracheal tube again seen in place. Right subclavian catheter tubing again identified terminates along the lateral aspect of the superior vena cava similar to the prior exam. Previously reported pneumomediastinum is unchanged. Interstitial infiltrates and pulmonary interstitial edema noted especially lung bases involving the right lung field. Right costophrenic angle was not fully included on this exam. Very small pleural effusions suggested. No pneumothorax. Impression: Interstitial infiltrates and consolidative appearance especially the lung bases similar to prior exam. No new process in the interval. Pneumomediastinum and soft tissue emphysema again seen. Electronically signed by: Aurelio Rogers MD (06/27/2020 6:03 PM) [id number]
[2020-06-27] MEDS: fentaNYL HIGH DOSE PCA 55 ML IV PRN (18:33)
[2020-06-28] VITALS (25 sets, daily range): BP systolic 88–165; BP diastolic 51–70
[2020-06-28] MEDS: MIDAZOLAM 100mg/100ml NS BAG 100 ML IV PRN ×2 (00:21→13:20)
[2020-06-28] MEDS: methylPREDNISolone SOD SUCC PF 125 MG/2 ML VIAL. IV SCH (05:58)
[2020-06-28] MEDS: PIPERACILLIN/TAZOBACTAM 3.375 GM in IV NORMAL SALINE 50ML 50 ML IV SCH ×3 (05:58→17:54)
[2020-06-28 06:52] LABS: ALBUMIN 1.2 g/dL (3.4-5.0); ALBUMIN/GLOBULIN RATIO 0.3 (1.0-1.7); CALCIUM 7.7 mg/dL (8.5-10.1); CREATININE 0.7 mg/dL (0.7-1.3); GFR 111.2; POTASSIUM 5.1 mmol/L (3.5-5.1); TOTAL BILIRUBIN 0.6 mg/dL (0.2-1.0); TOTAL PROTEIN 5.1 g/dL (6.4-8.2)
--- NOTE | 2020-06-28 06:54 | PDOC ---
PULMONARY PROGRESS NOTES DATE: 06/28/20 TIME: 06:51 Subjective Sedated AC mode on fentanyl versed fio2 increased to 100% small ett secretion PEEP 10 Vitals Vital Signs Date Time Temp Pulse Resp B/P (MAP) Pulse Ox O2 Delivery O2 Flow Rate FiO2 06/28/20 06:00 53 20 88/51 (63) 94 Ventilator 06/28/20 04:00 97.7 97.7 Comments Patient seen doing the pandemic, on visual exam he is in sync with the ventilator no paroxysmal breathing pattern no significant edema On physical exam today he does have some subcutaneous emphysema on vent sedated nc at neck short cv rrr no accessory muscle use no rash edema Labs Laboratory Tests Test 06/26/20 08:00 06/27/20 07:45 06/27/20 08:55 O2 Saturation 96 % (92-99) 91 % (92-99) Arterial Blood pH 7.42 (7.35-7.45) 7.43 (7.35-7.45) Arterial Blood pCO2 at Patient Temp 42 mmHg (35-46) 42 mmHg (35-46) Arterial Blood pO2 at Patient Temp 88 mmHg (65-108) 64 mmHg (65-108) Arterial Blood HCO3 26 mmol/L (21-28) 27 mmol/L (21-28) Arterial Blood Base Excess 2 mmol/L (-3-3) 2 mmol/L (-3-3) FiO2 90/vent 50% White Blood Count 7.2 x10^3/uL (4.0-11.0) Red Blood Count 3.17 x10^6/uL (4.30-5.70) Hemoglobin 10.1 g/dL (13.0-17.5) Hematocrit 30.0 % (39.0-53.0) Mean Corpuscular Volume 95 fL (79-100) Mean Corpuscular Hemoglobin 32 pg (25-35) Mean Corpuscular Hemoglobin Concent 34 g/dL (31-37) Red Cell Distribution Width 15.0 % (11.5-14.5) Platelet Count 122 x10^3/uL (140-400) Neutrophils (%) (Auto) 97 % (31-73) Lymphocytes (%) (Auto) 2 % (24-48) Monocytes (%) (Auto) 1 % (0-9) Eosinophils (%) (Auto) 0 % (0-3) Basophils (%) (Auto) 0 % (0-3) Neutrophils # (Auto) 7.0 x10^3/uL (1.8-7.7) Lymphocytes # (Auto) 0.1 x10^3/uL (1.0-4.8) Monocytes # (Auto) 0.1 x10^3/uL (0.0-1.1) Eosinophils # (Auto) 0.0 x10^3/uL (0.0-0.7) Basophils # (Auto) 0.0 x10^3/uL (0.0-0.2) Prothrombin Time 15.7 SEC (11.7-14.0) Prothromb Time International Ratio 1.3 (0.8-1.1) Sodium Level 147 mmol/L (136-145) Potassium Level 5.1 mmol/L (3.5-5.1) Chloride Level 112 mmol/L (98-107) Carbon Dioxide Level 32 mmol/L (21-32) Anion Gap 3 (6-14) Blood Urea Nitrogen 37 mg/dL (8-26) Creatinine 0.8 mg/dL (0.7-1.3) Estimated GFR (Cockcroft-Gault) 95.3 Glucose Level 144 mg/dL (70-99) Calcium Level 8.0 mg/dL (8.5-10.1) Laboratory Tests Test 06/27/20 07:45 06/27/20 08:55 O2 Saturation 91 % (92-99) Arterial Blood pH 7.43 (7.35-7.45) Arterial Blood pCO2 at Patient Temp 42 mmHg (35-46) Arterial Blood pO2 at Patient Temp 64 mmHg (65-108) Arterial Blood HCO3 27 mmol/L (21-28) Arterial Blood Base Excess 2 mmol/L (-3-3) FiO2 50% White Blood Count 7.2 x10^3/uL (4.0-11.0) Red Blood Count 3.17 x10^6/uL (4.30-5.70) Hemoglobin 10.1 g/dL (13.0-17.5) Hematocrit 30.0 % (39.0-53.0) Mean Corpuscular Volume 95 fL (79-100) Mean Corpuscular Hemoglobin 32 pg (25-35) Mean Corpuscular Hemoglobin Concent 34 g/dL (31-37) Red Cell Distribution Width 15.0 % (11.5-14.5) Platelet Count 122 x10^3/uL (140-400) Neutrophils (%) (Auto) 97 % (31-73) Lymphocytes (%) (Auto) 2 % (24-48) Monocytes (%) (Auto) 1 % (0-9) Eosinophils (%) (Auto) 0 % (0-3) Basophils (%) (Auto) 0 % (0-3) Neutrophils # (Auto) 7.0 x10^3/uL (1.8-7.7) Lymphocytes # (Auto) 0.1 x10^3/uL (1.0-4.8) Monocytes # (Auto) 0.1 x10^3/uL (0.0-1.1) Eosinophils # (Auto) 0.0 x10^3/uL (0.0-0.7) Basophils # (Auto) 0.0 x10^3/uL (0.0-0.2) Prothrombin Time 15.7 SEC (11.7-14.0) Prothromb Time International Ratio 1.3 (0.8-1.1) Sodium Level 147 mmol/L (136-145) Potassium Level 5.1 mmol/L (3.5-5.1) Chloride Level 112 mmol/L (98-107) Carbon Dioxide Level 32 mmol/L (21-32) Anion Gap 3 (6-14) Blood Urea Nitrogen 37 mg/dL (8-26) Creatinine 0.8 mg/dL (0.7-1.3) Estimated GFR (Cockcroft-Gault) 95.3 Glucose Level 144 mg/dL (70-99) Calcium Level 8.0 mg/dL (8.5-10.1) Medications Active Scripts Medications Dose Route/Sig Max Daily Dose Days Date Category Trazodone Hcl 100 Mg Tablet 100 Mg PO HS 06/23/20 Reported Simvastatin 40 Mg Tablet 40 Mg PO HS 06/23/20 Reported Quetiapine Fumarate ER (Quetiapine Fumarate) 400 Mg Tab.er.24h 150 Mg PO BID 06/23/20 Reported Mirapex (Pramipexole Di-Hcl) 0.25 Mg Tablet 0.5 Mg PO BID 06/23/20 Reported Zyprexa (Olanzapine) 2.5 Mg Tablet 2.5 Mg PO DAILY 06/23/20 Reported Remeron (Mirtazapine) 15 Mg Tablet 7.5 Mg PO DAILY 06/23/20 Reported Namenda (Memantine Hcl) 10 Mg Tablet 10 Mg PO DAILY 06/23/20 Reported Fluoxetine Hcl 40 Mg Capsule 40 Mg PO DAILY 06/23/20 Reported Finasteride 5 Mg Tablet 5 Mg PO DAILY 06/23/20 Reported Aricept (Donepezil Hcl) 10 Mg Tablet 1 Tab PO QHS 30 06/23/20 Reported Depakote (Divalproex Sodium) 500 Mg Tablet.dr 125 Mg PO DAILY 06/23/20 Reported D3-50 (Cholecalciferol (Vitamin D3)) 50,000 Unit Capsule 50,000 Unit PO WEEKLY 06/23/20 Reported Aspirin 81 Mg Tab.chew 1 Tab PO DAILY 06/23/20 Reported Acetaminophen 325 Mg Tablet 2 Tab PO PRN Q4-6HRS PRN 24 06/23/20 Reported Comments cxr reviewed ett ok b lat infilt sub cut emphysema Impression . IMPRESSION: 1. Acute hypoxic respiratory failure secondary to cp arrest and COVID-19 pneumonia/acute respiratory distress syndrome. 2. Status post cp arrest. 3. Abnormal chest x-ray with diffuse lung infiltrates consistent with COVID-19 pneumonia. 4. COVID-19 positive. 5. Abnormal LFTs, l 6. Underlying psychiatric illnesses. 7. DVT 8. Subcutaneous emphysema suspect ruptured alveolar chest x-ray reveals no ptx Plan . Chest x-ray reviewed no ptx o2 need increased cont vent support, setting reviewed Continue current support Titrate FiO2 for saturations above 94% IV steroid, change to 40 q 8hrs Status post convalescent plasma Monitor lab Full dose anticoagulate discussed w rn, rt critically ill Total cumulative critical care time of 30-minute no overlap MAXI FINLEY MD Jun 28, 2020 06:54
[2020-06-28 07:15] LABS: BASO % 0 % (0-3); EOS % 0 % (0-3); HEMATOCRIT 30.8 % (39.0-53.0); HEMOGLOBIN 10.2 g/dL (13.0-17.5); LYMPH # 0.1 x10^3/uL (1.0-4.8); LYMPH % 2 % (24-48); MEAN CORPUSCULAR HEMOGLOBIN 32 pg (25-35); MEAN CORPUSCULAR HGB CONC 33 g/dL (31-37); MEAN CORPUSCULAR VOLUME 96 fL (79-100); MONO # 0.1 x10^3/uL (0.0-1.1); MONO % 2 % (0-9); NEUT # 7.1 x10^3/uL (1.8-7.7); NEUT % 96 % (31-73); PLATELET COUNT 121 x10^3/uL (140-400); RED CELL DISTRIBUTION WIDTH 15.1 % (11.5-14.5); WHITE BLOOD COUNT 7.3 x10^3/uL (4.0-11.0)
--- NOTE | 2020-06-28 07:21 | RAD ---
EXAM: Chest, single view. HISTORY: Respiratory failure. COMPARISON: 06/27/2020 FINDINGS: A frontal view of the chest is obtained. There is stable diffuse lower lobe predominant interstitial infiltrate with suspected small pleural effusions. There is no convincing pneumothorax. There is an endotracheal tube within the mid trachea. There is a nasogastric tube within the stomach. There is a right subclavian catheter terminating lateral to the expected location of the superior vena cava. There is extensive soft tissue emphysema. There is pneumomediastinum. There is linear right basilar atelectasis. IMPRESSION: 1. Stable diffuse lower lobe predominant interstitial infiltrate with small pleural effusions and suspected right basilar atelectasis. 2. Stable soft tissue emphysema and pneumomediastinum. No convincing pneumothorax is seen. 3. Right subclavian catheter terminating lateral to expected location, stable in appearance. The remainder of the support lines and tubes are also unchanged. Electronically signed by: Sarika Talavera MD (06/28/2020 7:18 AM) [id number]
--- NOTE | 2020-06-28 08:02 | PDOC ---
Infectious Disease Note Subjective Subjective Intubated/sedated Vital Sign Vital Signs Vital Signs Date Time Temp Pulse Resp B/P (MAP) Pulse Ox O2 Delivery O2 Flow Rate FiO2 06/28/20 07:00 50 20 107/65 (79) 94 Ventilator 06/28/20 04:00 97.7 97.7 Physical Exam PHYSICAL EXAM GEN: Intubated and sedated HEENT: Pupils are small, equal. Normal conjunctivae. NECK: Supple.full on right side and mild crepitus LUNGS: Decreased in the bases. HEART: S1, S2. ABDOMEN: Soft, no guarding, no rebound. EXTREMITIES: Without clubbing or cyanosis. No gross edema. He has mitts on in place SKIN: Warm without signs of rash. IVs, he has a right subclavian line and also a peripheral line that is clean. . Labs Lab Laboratory Tests Test 06/27/20 08:55 06/28/20 06:00 White Blood Count 7.2 x10^3/uL (4.0-11.0) 7.3 x10^3/uL (4.0-11.0) Red Blood Count 3.17 x10^6/uL (4.30-5.70) 3.20 x10^6/uL (4.30-5.70) Hemoglobin 10.1 g/dL (13.0-17.5) 10.2 g/dL (13.0-17.5) Hematocrit 30.0 % (39.0-53.0) 30.8 % (39.0-53.0) Mean Corpuscular Volume 95 fL (79-100) 96 fL (79-100) Mean Corpuscular Hemoglobin 32 pg (25-35) 32 pg (25-35) Mean Corpuscular Hemoglobin Concent 34 g/dL (31-37) 33 g/dL (31-37) Red Cell Distribution Width 15.0 % (11.5-14.5) 15.1 % (11.5-14.5) Platelet Count 122 x10^3/uL (140-400) 121 x10^3/uL (140-400) Neutrophils (%) (Auto) 97 % (31-73) 96 % (31-73) Lymphocytes (%) (Auto) 2 % (24-48) 2 % (24-48) Monocytes (%) (Auto) 1 % (0-9) 2 % (0-9) Eosinophils (%) (Auto) 0 % (0-3) 0 % (0-3) Basophils (%) (Auto) 0 % (0-3) 0 % (0-3) Neutrophils # (Auto) 7.0 x10^3/uL (1.8-7.7) 7.1 x10^3/uL (1.8-7.7) Lymphocytes # (Auto) 0.1 x10^3/uL (1.0-4.8) 0.1 x10^3/uL (1.0-4.8) Monocytes # (Auto) 0.1 x10^3/uL (0.0-1.1) 0.1 x10^3/uL (0.0-1.1) Eosinophils # (Auto) 0.0 x10^3/uL (0.0-0.7) 0.0 x10^3/uL (0.0-0.7) Basophils # (Auto) 0.0 x10^3/uL (0.0-0.2) 0.0 x10^3/uL (0.0-0.2) Prothrombin Time 15.7 SEC (11.7-14.0) Prothromb Time International Ratio 1.3 (0.8-1.1) Sodium Level 147 mmol/L (136-145) 147 mmol/L (136-145) Potassium Level 5.1 mmol/L (3.5-5.1) 5.1 mmol/L (3.5-5.1) Chloride Level 112 mmol/L (98-107) 113 mmol/L (98-107) Carbon Dioxide Level 32 mmol/L (21-32) 30 mmol/L (21-32) Anion Gap 3 (6-14) 4 (6-14) Blood Urea Nitrogen 37 mg/dL (8-26) 37 mg/dL (8-26) Creatinine 0.8 mg/dL (0.7-1.3) 0.7 mg/dL (0.7-1.3) Estimated GFR (Cockcroft-Gault) 95.3 111.2 Glucose Level 144 mg/dL (70-99) 194 mg/dL (70-99) Calcium Level 8.0 mg/dL (8.5-10.1) 7.7 mg/dL (8.5-10.1) BUN/Creatinine Ratio 53 (6-20) Total Bilirubin 0.6 mg/dL (0.2-1.0) Aspartate Amino Transf (AST/SGOT) 25 U/L (15-37) Alanine Aminotransferase (ALT/SGPT) 47 U/L (16-63) Alkaline Phosphatase 173 U/L (46-116) Total Protein 5.1 g/dL (6.4-8.2) Albumin 1.2 g/dL (3.4-5.0) Albumin/Globulin Ratio 0.3 (1.0-1.7) Micro IMPRESSION: 1. The life support devices are stable. 2. Basilar predominant interstitial and alveolar opacities are unchanged. 3. There is new bilateral supraclavicular and neck subcutaneous air. Objective Assessment Hypotension - stable on min Levophed- trying to taper Previous neg Blood and urine cults 06/14 d/w micro Acute Hypoxic Resp failure - intubated on 100 % Fi02 and 10 of PEEP Lacitic acidosis SUB Q air about neck Transaminitis - ? reactive +/- Covid =- better COVID + 06/16//. S/p Plasma 06/24. On steorids RLE DVT Alzheimers Deafness S/p code -elevated troponin Severe Protein malnutrition Has received zosyn/vanc and Augmentin prior transfer Plan Plan of Care Cont Zosyn for now Not a Remdesivir candidate on vent Cont Steroids per pulm F/u labs Critically ill d/w nursing SHAWNEE DUDLEY MD Jun 28, 2020 08:02
[2020-06-28] MEDS: PRAMIPEXOLE 0.25 MG TABLET. PO SCH ×2 (08:33→21:02)
[2020-06-28] MEDS: QUEtiapine 100 MG TABLET. PO SCH ×2 (08:33→21:03)
[2020-06-28] MEDS: PANTOPRAZOLE IV PUSH 40 MG VIAL. IVP SCH (08:33)
[2020-06-28] MEDS: DIVALPROEX SPRINKLES 125 MG CAPSULE. PO SCH ×2 (08:33→21:03)
[2020-06-28 08:53] LABS: BASE EXCESS ABG 1 mmol/L (-3-3); HCO3 ABG 26 mmol/L (21-28); PCO2 ABG 43 mmHg (35-46); PO2 ABG 75 mmHg (65-108); SAT O2 ABG 94 % (92-99)
[2020-06-28 08:54] LABS: FIO2 ABG 100% VENT
[2020-06-28] MEDS: ANTI-COAG MONITOR BY PHARMACY. MC PRN (10:31)
--- NOTE | 2020-06-28 10:44 | PN ---
DATE: 06/28/2020 SUBJECTIVE: The patient continued to be intubated and mechanically ventilated. He continued to do poorly. His FiO2 was increased to 100%. A chest x-ray continued to show pneumomediastinum, but no pneumothorax and subcutaneous emphysema. He continued to be on a small dose of Levophed. PHYSICAL EXAMINATION: GENERAL: When I examined him, he looked pale, but no jaundice, cyanosis or thyromegaly. No jugular venous distention, but generalized anasarca. VITAL SIGNS: Heart rate was 50, blood pressure was 107/65, temperature 97.7, respiratory rate was 20, and oxygen saturation was 94% on FiO2 of 100%. HEENT: Showed normocephalic, atraumatic. NECK: Supple. HEART: Normal first and second heart sounds. No gallop or murmur. CHEST: Shows central trachea, equal bilateral chest expansion, air entry. I could not really appreciate any crepitation or rhonchi anteriorly. He definitely has soft tissue emphysema. ABDOMEN: Distended, soft, nontender. NEUROLOGIC: He is heavily sedated and mechanically ventilated. His intake over the last 24 hours is 3200, no output was recorded. LABORATORY DATA: His lab work as of this morning showed a serum sodium of 147, potassium 5.1, chloride 113, bicarbonate 30, anion gap of 4, BUN 37, creatinine 0.7, estimated GFR was 111 mL per minute. His glucose was 94, calcium was 7.7. Total bilirubin, AST, ALT were normal. Alkaline phosphatase slightly elevated. Total protein was 5.1, albumin was 1.2. ASSESSMENT: 1. COVID-19 pneumonia plus minus healthcare-associated pneumonia. 2. Acute hypoxic respiratory failure that required intubation, mechanical ventilation. His oxygen requirement continued to rise and today, he is on FiO2 of 100%. 3. Sepsis with lactic acidosis, improved. 4. Other medical problems include: A. Hypertension, however, the patient is hypotensive and a small dose of Levophed. B. Hyperlipidemia. C. Benign prostatic hypertrophy. D. Restless legs syndrome. E. Hypernatremia, stable. F. Severe protein-calorie malnutrition with serum albumin of 1.4. PLAN: The plan is to continue with mechanical ventilation. Continue with sedation. Continue with IV antibiotic in the form of Zosyn. Continue with steroids. Continue Lovenox for treatment of his DVT. His overall prognosis is extremely poor and apparently, his will make a decision by Tuesday. CARMEN GOODMAN MD DR: MARCOS/aleshia JOB#: [id number] / [id number]
[2020-06-28] MEDS: methylPREDNISolone SOD SUCC PF 40 MG/ML VIAL. IV SCH ×2 (14:15→22:36)
[2020-06-28] MEDS: fentaNYL HIGH DOSE PCA 55 ML IV PRN (18:13)
[2020-06-28] MEDS: NYSTATIN TOPICAL POWDER 15GM BOTTLE. TP SCH (21:02)
[2020-06-29] VITALS (24 sets, daily range): BP systolic 99–127; BP diastolic 52–73
[2020-06-29] MEDS: PIPERACILLIN/TAZOBACTAM 3.375 GM in IV NORMAL SALINE 50ML 50 ML IV SCH ×4 (00:27→17:39)
[2020-06-29] MEDS: MIDAZOLAM 100mg/100ml NS BAG 100 ML IV PRN ×3 (00:28→21:26)
[2020-06-29] MEDS: methylPREDNISolone SOD SUCC PF 40 MG/ML VIAL. IV SCH ×3 (05:31→21:26)
[2020-06-29 06:11] LABS: HEMATOCRIT 30.5 % (39.0-53.0); HEMOGLOBIN 10.1 g/dL (13.0-17.5); RED BLOOD COUNT 3.2 x10^6/uL (4.30-5.70); WHITE BLOOD COUNT 7.8 x10^3/uL (4.0-11.0)
[2020-06-29 06:30] LABS: CALCIUM 7.8 mg/dL (8.5-10.1); CREATININE 0.7 mg/dL (0.7-1.3); GFR 111.2; POTASSIUM 4.9 mmol/L (3.5-5.1)
--- NOTE | 2020-06-29 06:46 | PDOC ---
PULMONARY PROGRESS NOTES DATE: 06/29/20 TIME: 06:40 Subjective Sedated AC mode on fentanyl versed fio2 100% desats easily small ett secretion PEEP 10 Vitals Vital Signs Date Time Temp Pulse Resp B/P (MAP) Pulse Ox O2 Delivery O2 Flow Rate FiO2 06/29/20 06:00 54 18 110/63 (79) 93 Ventilator 06/29/20 04:00 97.9 97.9 Comments Patient seen doing the , on visual exam he is in sync with the ventilator no paroxysmal breathing pattern no significant edema On physical exam today he does have some subcutaneous emphysema on vent sedated nc at neck short cv rrr no accessory muscle use no rash edema Labs Laboratory Tests Test 06/27/20 07:45 06/27/20 08:55 06/28/20 06:00 06/28/20 08:20 O2 Saturation 91 % (92-99) 94 % (92-99) Arterial Blood pH 7.43 (7.35-7.45) 7.41 (7.35-7.45) Arterial Blood pCO2 at Patient Temp 42 mmHg (35-46) 43 mmHg (35-46) Arterial Blood pO2 at Patient Temp 64 mmHg (65-108) 75 mmHg (65-108) Arterial Blood HCO3 27 mmol/L (21-28) 26 mmol/L (21-28) Arterial Blood Base Excess 2 mmol/L (-3-3) 1 mmol/L (-3-3) FiO2 50% 100% vent White Blood Count 7.2 x10^3/uL (4.0-11.0) 7.3 x10^3/uL (4.0-11.0) Red Blood Count 3.17 x10^6/uL (4.30-5.70) 3.20 x10^6/uL (4.30-5.70) Hemoglobin 10.1 g/dL (13.0-17.5) 10.2 g/dL (13.0-17.5) Hematocrit 30.0 % (39.0-53.0) 30.8 % (39.0-53.0) Mean Corpuscular Volume 95 fL (79-100) 96 fL (79-100) Mean Corpuscular Hemoglobin 32 pg (25-35) 32 pg (25-35) Mean Corpuscular Hemoglobin Concent 34 g/dL (31-37) 33 g/dL (31-37) Red Cell Distribution Width 15.0 % (11.5-14.5) 15.1 % (11.5-14.5) Platelet Count 122 x10^3/uL (140-400) 121 x10^3/uL (140-400) Neutrophils (%) (Auto) 97 % (31-73) 96 % (31-73) Lymphocytes (%) (Auto) 2 % (24-48) 2 % (24-48) Monocytes (%) (Auto) 1 % (0-9) 2 % (0-9) Eosinophils (%) (Auto) 0 % (0-3) 0 % (0-3) Basophils (%) (Auto) 0 % (0-3) 0 % (0-3) Neutrophils # (Auto) 7.0 x10^3/uL (1.8-7.7) 7.1 x10^3/uL (1.8-7.7) Lymphocytes # (Auto) 0.1 x10^3/uL (1.0-4.8) 0.1 x10^3/uL (1.0-4.8) Monocytes # (Auto) 0.1 x10^3/uL (0.0-1.1) 0.1 x10^3/uL (0.0-1.1) Eosinophils # (Auto) 0.0 x10^3/uL (0.0-0.7) 0.0 x10^3/uL (0.0-0.7) Basophils # (Auto) 0.0 x10^3/uL (0.0-0.2) 0.0 x10^3/uL (0.0-0.2) Prothrombin Time 15.7 SEC (11.7-14.0) Prothromb Time International Ratio 1.3 (0.8-1.1) Sodium Level 147 mmol/L (136-145) 147 mmol/L (136-145) Potassium Level 5.1 mmol/L (3.5-5.1) 5.1 mmol/L (3.5-5.1) Chloride Level 112 mmol/L (98-107) 113 mmol/L (98-107) Carbon Dioxide Level 32 mmol/L (21-32) 30 mmol/L (21-32) Anion Gap 3 (6-14) 4 (6-14) Blood Urea Nitrogen 37 mg/dL (8-26) 37 mg/dL (8-26) Creatinine 0.8 mg/dL (0.7-1.3) 0.7 mg/dL (0.7-1.3) Estimated GFR (Cockcroft-Gault) 95.3 111.2 Glucose Level 144 mg/dL (70-99) 194 mg/dL (70-99) Calcium Level 8.0 mg/dL (8.5-10.1) 7.7 mg/dL (8.5-10.1) BUN/Creatinine Ratio 53 (6-20) Total Bilirubin 0.6 mg/dL (0.2-1.0) Aspartate Amino Transf (AST/SGOT) 25 U/L (15-37) Alanine Aminotransferase (ALT/SGPT) 47 U/L (16-63) Alkaline Phosphatase 173 U/L (46-116) Total Protein 5.1 g/dL (6.4-8.2) Albumin 1.2 g/dL (3.4-5.0) Albumin/Globulin Ratio 0.3 (1.0-1.7) Test 06/28/20 21:46 06/29/20 05:45 Glucose (Fingerstick) 184 mg/dL (70-99) White Blood Count 7.8 x10^3/uL (4.0-11.0) Red Blood Count 3.20 x10^6/uL (4.30-5.70) Hemoglobin 10.1 g/dL (13.0-17.5) Hematocrit 30.5 % (39.0-53.0) Mean Corpuscular Volume 95 fL (79-100) Mean Corpuscular Hemoglobin 32 pg (25-35) Mean Corpuscular Hemoglobin Concent 33 g/dL (31-37) Red Cell Distribution Width 15.0 % (11.5-14.5) Platelet Count 114 x10^3/uL (140-400) Sodium Level 145 mmol/L (136-145) Potassium Level 4.9 mmol/L (3.5-5.1) Chloride Level 112 mmol/L (98-107) Carbon Dioxide Level 33 mmol/L (21-32) Anion Gap 0 (6-14) Blood Urea Nitrogen 32 mg/dL (8-26) Creatinine 0.7 mg/dL (0.7-1.3) Estimated GFR (Cockcroft-Gault) 111.2 Glucose Level 178 mg/dL (70-99) Calcium Level 7.8 mg/dL (8.5-10.1) Laboratory Tests Test 06/28/20 08:20 06/28/20 21:46 06/29/20 05:45 O2 Saturation 94 % (92-99) Arterial Blood pH 7.41 (7.35-7.45) Arterial Blood pCO2 at Patient Temp 43 mmHg (35-46) Arterial Blood pO2 at Patient Temp 75 mmHg (65-108) Arterial Blood HCO3 26 mmol/L (21-28) Arterial Blood Base Excess 1 mmol/L (-3-3) FiO2 100% vent Glucose (Fingerstick) 184 mg/dL (70-99) White Blood Count 7.8 x10^3/uL (4.0-11.0) Red Blood Count 3.20 x10^6/uL (4.30-5.70) Hemoglobin 10.1 g/dL (13.0-17.5) Hematocrit 30.5 % (39.0-53.0) Mean Corpuscular Volume 95 fL (79-100) Mean Corpuscular Hemoglobin 32 pg (25-35) Mean Corpuscular Hemoglobin Concent 33 g/dL (31-37) Red Cell Distribution Width 15.0 % (11.5-14.5) Platelet Count 114 x10^3/uL (140-400) Sodium Level 145 mmol/L (136-145) Potassium Level 4.9 mmol/L (3.5-5.1) Chloride Level 112 mmol/L (98-107) Carbon Dioxide Level 33 mmol/L (21-32) Anion Gap 0 (6-14) Blood Urea Nitrogen 32 mg/dL (8-26) Creatinine 0.7 mg/dL (0.7-1.3) Estimated GFR (Cockcroft-Gault) 111.2 Glucose Level 178 mg/dL (70-99) Calcium Level 7.8 mg/dL (8.5-10.1) Medications Active Scripts Medications Dose Route/Sig Max Daily Dose Days Date Category Trazodone Hcl 100 Mg Tablet 100 Mg PO HS 06/23/20 Reported Simvastatin 40 Mg Tablet 40 Mg PO HS 06/23/20 Reported Quetiapine Fumarate ER (Quetiapine Fumarate) 400 Mg Tab.er.24h 150 Mg PO BID 06/23/20 Reported Mirapex (Pramipexole Di-Hcl) 0.25 Mg Tablet 0.5 Mg PO BID 06/23/20 Reported Zyprexa (Olanzapine) 2.5 Mg Tablet 2.5 Mg PO DAILY 06/23/20 Reported Remeron (Mirtazapine) 15 Mg Tablet 7.5 Mg PO DAILY 06/23/20 Reported Namenda (Memantine Hcl) 10 Mg Tablet 10 Mg PO DAILY 06/23/20 Reported Fluoxetine Hcl 40 Mg Capsule 40 Mg PO DAILY 06/23/20 Reported Finasteride 5 Mg Tablet 5 Mg PO DAILY 06/23/20 Reported Aricept (Donepezil Hcl) 10 Mg Tablet 1 Tab PO QHS 30 06/23/20 Reported Depakote (Divalproex Sodium) 500 Mg Tablet.dr 125 Mg PO DAILY 06/23/20 Reported D3-50 (Cholecalciferol (Vitamin D3)) 50,000 Unit Capsule 50,000 Unit PO WEEKLY 06/23/20 Reported Aspirin 81 Mg Tab.chew 1 Tab PO DAILY 06/23/20 Reported Acetaminophen 325 Mg Tablet 2 Tab PO PRN Q4-6HRS PRN 24 06/23/20 Reported Comments cxr reviewed ett ok 1. Stable diffuse right greater than left lung infiltrate with suspected small to trace pleural effusions. 2. Decreased soft tissue emphysema. Impression . IMPRESSION: 1. Acute hypoxic respiratory failure secondary to cp arrest and COVID-19 pneumonia/acute respiratory distress syndrome. 2. Status post cp arrest. 3. Abnormal chest x-ray with diffuse lung infiltrates consistent with COVID-19 pneumonia. 4. COVID-19 positive. 5. Abnormal LFTs, l 6. Underlying psychiatric illnesses. 7. DVT 8. Subcutaneous emphysema suspect ruptured alveolar chest x-ray reveals no ptx Plan . Chest x-ray reviewed no ptx on fi02 100%, peep 10 desat easily cont sedation cont vent support, setting reviewed Continue current support Titrate FiO2 for saturations above 94% IV steroid, cont 40 q 8hrs Status post convalescent plasma Monitor lab Full dose anticoagulate discussed w rn, rt critically ill Total cumulative critical care time of 30-minute no overlap MAXI FINLEY MD Jun 29, 2020 06:46
--- NOTE | 2020-06-29 07:14 | PDOC ---
Infectious Disease Note Subjective Subjective Intubated/sedated Vital Sign Vital Signs Vital Signs Date Time Temp Pulse Resp B/P (MAP) Pulse Ox O2 Delivery O2 Flow Rate FiO2 06/29/20 07:00 56 18 114/64 (81) 92 Ventilator 06/29/20 04:00 97.9 97.9 Physical Exam PHYSICAL EXAM GEN: Intubated and sedated HEENT: Pupils are small, equal. Normal conjunctivae. NECK: Supple.full on right side and mild crepitus LUNGS: Decreased in the bases. HEART: S1, S2. ABDOMEN: Soft, no guarding, no rebound. EXTREMITIES: Without clubbing or cyanosis. No gross edema. He has mitts on in place SKIN: Warm without signs of rash. IVs, he has a right subclavian line and also a peripheral line that is clean. . Labs Lab Laboratory Tests Test 06/28/20 08:20 06/28/20 21:46 06/29/20 05:45 O2 Saturation 94 % (92-99) Arterial Blood pH 7.41 (7.35-7.45) Arterial Blood pCO2 at Patient Temp 43 mmHg (35-46) Arterial Blood pO2 at Patient Temp 75 mmHg (65-108) Arterial Blood HCO3 26 mmol/L (21-28) Arterial Blood Base Excess 1 mmol/L (-3-3) FiO2 100% vent Glucose (Fingerstick) 184 mg/dL (70-99) White Blood Count 7.8 x10^3/uL (4.0-11.0) Red Blood Count 3.20 x10^6/uL (4.30-5.70) Hemoglobin 10.1 g/dL (13.0-17.5) Hematocrit 30.5 % (39.0-53.0) Mean Corpuscular Volume 95 fL (79-100) Mean Corpuscular Hemoglobin 32 pg (25-35) Mean Corpuscular Hemoglobin Concent 33 g/dL (31-37) Red Cell Distribution Width 15.0 % (11.5-14.5) Platelet Count 114 x10^3/uL (140-400) Sodium Level 145 mmol/L (136-145) Potassium Level 4.9 mmol/L (3.5-5.1) Chloride Level 112 mmol/L (98-107) Carbon Dioxide Level 33 mmol/L (21-32) Anion Gap 0 (6-14) Blood Urea Nitrogen 32 mg/dL (8-26) Creatinine 0.7 mg/dL (0.7-1.3) Estimated GFR (Cockcroft-Gault) 111.2 Glucose Level 178 mg/dL (70-99) Calcium Level 7.8 mg/dL (8.5-10.1) Micro IMPRESSION: 1. The life support devices are stable. 2. Basilar predominant interstitial and alveolar opacities are unchanged. 3. There is new bilateral supraclavicular and neck subcutaneous air. Objective Assessment Hypotension - stable off Levophed- Previous neg Blood and urine cults 06/14 d/w micro Acute Hypoxic Resp failure - intubated on 100 % Fi02 and 10 of PEEP Lacitic acidosis SUB Q air about neck Transaminitis - ? reactive +/- Covid =- better COVID + 06/16/06/18. S/p Plasma 06/24. On steorids RLE DVT Alzheimers Deafness S/p code -elevated troponin Severe Protein malnutrition Has received zosyn/vanc and Augmentin prior transfer Plan Plan of Care Cont Zosyn for now Not a Remdesivir candidate on vent Cont Steroids per pulm F/u labs Critically ill d/w nursing SHAWNEE DUDLEY MD Jun 29, 2020 07:14
--- NOTE | 2020-06-29 07:18 | RAD ---
EXAM: Chest, single view. HISTORY: Respiratory failure. COMPARISON: 06/28/2020 FINDINGS: A frontal view of the chest obtained. There is stable diffuse right greater than left lung infiltrate with trace pleural effusions. There is an endotracheal tube within the mid trachea. There is a nasogastric tube within the stomach. There is a right subclavian catheter terminating lateral to the paratracheal stripe. There few nodular opacities which may be due to nodular infiltrate overlying both lungs. There has been interval decrease in soft tissue emphysema overlying the chest and neck. The heart is stable in size. IMPRESSION: 1. Stable diffuse right greater than left lung infiltrate with suspected small to trace pleural effusions. 2. Decreased soft tissue emphysema. 3. Unchanged support lines and tubes. Electronically signed by: Sarika Talavera MD (06/29/2020 7:16 AM) [id number]
[2020-06-29] MEDS: PANTOPRAZOLE IV PUSH 40 MG VIAL. IVP SCH (07:37)
[2020-06-29] MEDS: NYSTATIN TOPICAL POWDER 15GM BOTTLE. TP SCH ×2 (07:39→21:00)
[2020-06-29] MEDS: QUEtiapine 100 MG TABLET. PO SCH ×2 (07:39→21:26)
[2020-06-29] MEDS: DIVALPROEX SPRINKLES 125 MG CAPSULE. PO SCH ×2 (07:39→21:26)
[2020-06-29] MEDS: ANTI-COAG MONITOR BY PHARMACY. MC PRN (08:25)
[2020-06-29 08:46] LABS: FIO2 ABG 100%+10; PO2 ABG 65 mmHg (65-108); SAT O2 ABG 92 % (92-99)
[2020-06-29 08:47] LABS: BASE EXCESS ABG 5 mmol/L (-3-3); HCO3 ABG 30 mmol/L (21-28); PCO2 ABG 47 mmHg (35-46)
[2020-06-29] MEDS: PRAMIPEXOLE 0.25 MG TABLET. PO SCH ×2 (09:04→21:27)
--- NOTE | 2020-06-29 10:49 | PN ---
DATE: 06/29/2020 SUBJECTIVE: The patient is resting, slightly propped up in bed, in no apparent distress. He continued to be sedated, intubated and mechanically ventilated. He continued to be 100% of an FiO2 of 100%, maintaining his oxygen saturation at 92%. He is off Levophed. PHYSICAL EXAMINATION: GENERAL: When I examined him, he looked pale, no jaundice, cyanosis or thyromegaly. No jugular venous distention or limb edema. VITAL SIGNS: Her heart rate was 56, blood pressure was 114/64, temperature 97.9, respiratory rate was 18, and oxygen saturation was 92%. HEENT: Showed normocephalic, atraumatic. NECK: Supple. HEART: Showed normal first and second heart sounds with no gallop, rub or murmur. CHEST: Shows central trachea, equal bilateral expansion, air entry, vesicular sounds. No crepitation or rhonchi anteriorly. ABDOMEN: Distended, soft, nontender. NEUROLOGIC: He is heavily sedated. His intake over the last 24 hours was 3874, no output was recorded. LABORATORY DATA: Her lab work his morning showed a white cell count of 7800, hemoglobin 10, hematocrit 30, MCV 95, and platelet count 214,000. His chemistry showed a serum sodium of 145, potassium 4.9, chloride 112, bicarbonate 33, anion gap of 0, BUN 32, creatinine 0.7, estimated GFR was 111 mL per minute, his glucose 178 and calcium was 7.8. ASSESSMENT: 1. Acute hypoxic respiratory failure secondary to cardiopulmonary arrest as well as COVID-19 pneumonia/acute respiratory distress syndrome. 2. Status post cardiopulmonary arrest. 3. COVID-19 by positivity for underlying psychiatric illness. 4. Deep venous thrombosis. 5. Subcutaneous emphysema with a pneumomediastinum without pneumothorax. Plan is to obviously He has other medical problems including: A. Hypertension. The patient, however, does have a normotensive and off Levophed. B. Hyperlipidemia. C. Benign prostatic hypertrophy. G. 6. Restless legs syndrome. E. Hypernatremia that has resolved. His sodium is down to 145. F. has severe protein-calorie malnutrition with serum albumin is only 1.4. PLAN: To continue mechanical ventilation. Continue with sedation. Continue with IV antibiotic. Continue with steroids, continue Lovenox as DVT treatment overall prognosis is extremely poor and apparently his would make a decision regarding withdrawal of care. CARMEN GOODMAN MD DR: MARCOS/aleshia JOB#: [id number] / [id number]
[2020-06-29 15:56] LABS: VAL ACID 8 mcg/mL (50-100)
--- NOTE | 2020-06-29 17:30 | NUR ---
Spoke with patient's , Meri, at [phone]. Update given regarding patient status. Meri requests to speak with a physician on the phone tomorrow, 06/30/20, to discuss patient status/plan of care.
[2020-06-30] VITALS (14 sets, daily range): BP systolic 81–109; BP diastolic 57–67
[2020-06-30] MEDS: PIPERACILLIN/TAZOBACTAM 3.375 GM in IV NORMAL SALINE 50ML 50 ML IV SCH ×3 (00:48→11:55)
[2020-06-30] MEDS: MIDAZOLAM 100mg/100ml NS BAG 100 ML IV PRN (03:35)
[2020-06-30] MEDS: methylPREDNISolone SOD SUCC PF 40 MG/ML VIAL. IV SCH (05:36)
[2020-06-30] MEDS: fentaNYL HIGH DOSE PCA 55 ML IV PRN (05:41)
[2020-06-30 06:22] LABS: BASO % 0 % (0-3); EOS % 0 % (0-3); HEMATOCRIT 31.3 % (39.0-53.0); HEMOGLOBIN 10.3 g/dL (13.0-17.5); LYMPH # 0.1 x10^3/uL (1.0-4.8); LYMPH % 2 % (24-48); MEAN CORPUSCULAR HEMOGLOBIN 31 pg (25-35); MEAN CORPUSCULAR HGB CONC 33 g/dL (31-37); MEAN CORPUSCULAR VOLUME 96 fL (79-100); MONO # 0.1 x10^3/uL (0.0-1.1); MONO % 2 % (0-9); NEUT # 7.7 x10^3/uL (1.8-7.7); NEUT % 97 % (31-73); PLATELET COUNT 107 x10^3/uL (140-400); RED BLOOD COUNT 3.28 x10^6/uL (4.30-5.70); RED CELL DISTRIBUTION WIDTH 15.3 % (11.5-14.5)
[2020-06-30 06:28] LABS: CALCIUM 7.8 mg/dL (8.5-10.1); CREATININE 0.6 mg/dL (0.7-1.3); GFR 132.8
[2020-06-30 06:31] LABS: MAGNESIUM 2.6 mg/dL (1.8-2.4); PHOSPHORUS 2.9 mg/dL (2.6-4.7)
--- NOTE | 2020-06-30 07:48 | PDOC ---
Infectious Disease Note Subjective Subjective Intubated/sedated ROS ROS no n/v/d/ Vital Sign Vital Signs Vital Signs Date Time Temp Pulse Resp B/P (MAP) Pulse Ox O2 Delivery O2 Flow Rate FiO2 06/30/20 07:00 63 18 107/65 (79) 90 Ventilator 06/30/20 04:00 98.2 98.2 Physical Exam PHYSICAL EXAM GEN: Intubated and sedated HEENT: Pupils are small, equal. Normal conjunctivae. NECK: Supple.full on right side and mild crepitus LUNGS: Decreased in the bases. HEART: S1, S2. ABDOMEN: Soft, no guarding, no rebound. EXTREMITIES: Without clubbing or cyanosis. No gross edema. He has mitts on in place SKIN: Warm without signs of rash. IVs, he has a right subclavian line and also a peripheral line that is clean. . Labs Lab Laboratory Tests Test 06/29/20 08:00 06/29/20 15:23 06/29/20 16:58 06/30/20 06:00 O2 Saturation 92 % (92-99) Arterial Blood pH 7.42 (7.35-7.45) Arterial Blood pCO2 at Patient Temp 47 mmHg (35-46) Arterial Blood pO2 at Patient Temp 65 mmHg (65-108) Arterial Blood HCO3 30 mmol/L (21-28) Arterial Blood Base Excess 5 mmol/L (-3-3) FiO2 100%+10 Valproic Acid (Depakene) Level 8 mcg/mL (50-100) Valproic Acid Last Dose Date 06/29/20 Valproic Acid Last Dose Time 0900 Glucose (Fingerstick) 131 mg/dL (70-99) White Blood Count 8.0 x10^3/uL (4.0-11.0) Red Blood Count 3.28 x10^6/uL (4.30-5.70) Hemoglobin 10.3 g/dL (13.0-17.5) Hematocrit 31.3 % (39.0-53.0) Mean Corpuscular Volume 96 fL (79-100) Mean Corpuscular Hemoglobin 31 pg (25-35) Mean Corpuscular Hemoglobin Concent 33 g/dL (31-37) Red Cell Distribution Width 15.3 % (11.5-14.5) Platelet Count 107 x10^3/uL (140-400) Neutrophils (%) (Auto) 97 % (31-73) Lymphocytes (%) (Auto) 2 % (24-48) Monocytes (%) (Auto) 2 % (0-9) Eosinophils (%) (Auto) 0 % (0-3) Basophils (%) (Auto) 0 % (0-3) Neutrophils # (Auto) 7.7 x10^3/uL (1.8-7.7) Lymphocytes # (Auto) 0.1 x10^3/uL (1.0-4.8) Monocytes # (Auto) 0.1 x10^3/uL (0.0-1.1) Eosinophils # (Auto) 0.0 x10^3/uL (0.0-0.7) Basophils # (Auto) 0.0 x10^3/uL (0.0-0.2) Sodium Level 145 mmol/L (136-145) Potassium Level 5.0 mmol/L (3.5-5.1) Chloride Level 111 mmol/L (98-107) Carbon Dioxide Level 31 mmol/L (21-32) Anion Gap 3 (6-14) Blood Urea Nitrogen 30 mg/dL (8-26) Creatinine 0.6 mg/dL (0.7-1.3) Estimated GFR (Cockcroft-Gault) 132.8 Glucose Level 164 mg/dL (70-99) Calcium Level 7.8 mg/dL (8.5-10.1) Phosphorus Level 2.9 mg/dL (2.6-4.7) Magnesium Level 2.6 mg/dL (1.8-2.4) Objective Assessment Hypotension - stable off Levophed- Previous neg Blood and urine cults 06/14 d/w micro Acute Hypoxic Resp failure - intubated on 100 % Fi02 and 10 of PEEP Lacitic acidosis SUB Q air about neck Transaminitis - ? reactive +/- Covid =- better COVID + 06/16//. S/p Plasma 06/24. On steorids RLE DVT Alzheimers Deafness S/p code -elevated troponin Severe Protein malnutrition Plan Plan of Care Cont Zosyn for now Not a Remdesivir candidate on vent Cont Steroids per pulm F/u labs Critically ill d/w nursing CARLOS CHEN MD Jun 30, 2020 07:48
[2020-06-30 08:13] LABS: BASE EXCESS ABG 3 mmol/L (-3-3); HCO3 ABG 29 mmol/L (21-28); PCO2 ABG 49 mmHg (35-46); PO2 ABG 62 mmHg (65-108); SAT O2 ABG 90 % (92-99)
[2020-06-30 08:26] LABS: FIO2 ABG 100
[2020-06-30] MEDS: PANTOPRAZOLE IV PUSH 40 MG VIAL. IVP SCH (08:27)
[2020-06-30] MEDS: PRAMIPEXOLE 0.25 MG TABLET. PO SCH (08:27)
[2020-06-30] MEDS: DIVALPROEX SPRINKLES 125 MG CAPSULE. PO SCH (08:27)
[2020-06-30] MEDS: QUEtiapine 100 MG TABLET. PO SCH (08:27)
[2020-06-30] MEDS: NYSTATIN TOPICAL POWDER 15GM BOTTLE. TP SCH (08:28)
--- NOTE | 2020-06-30 08:42 | PN ---
DATE: 06/30/2020 SUBJECTIVE: The patient is continued to be heavily sedated, intubated and mechanically ventilated. He is now on FiO2 of 100%, maintaining his oxygen saturation at 88%. PHYSICAL EXAMINATION: GENERAL: When I examined him, he looked pale, but no jaundice, cyanosis or thyromegaly. No jugular venous distention. No lower limb edema. VITAL SIGNS: His heart rate was 63, blood pressure was 107/65, temperature was 98.2, respiratory rate was 18 and oxygen saturation was 88% on FiO2 of 100%. HEAD, EYES, EARS, NOSE AND THROAT: Showed normocephalic, atraumatic. NECK: Supple. HEART: Showed normal first and second heart sounds. No gallop, rub or murmur. CHEST: Clear to auscultation. No crepitation or rhonchi. ABDOMEN: Distended, soft, nontender. No guarding or rigidity. No organomegaly. All hernial orifices intact. Bowel sounds normal. NEUROLOGIC: He is heavily sedated. His intake over the last 24 hours was 3690, no output was recorded. LABORATORY DATA: His lab work this morning showed a white cell count of 8000, hemoglobin 10, hematocrit 31, MCV 96, and platelet count of 107,000. Serum sodium was 145, potassium 5, chloride 111, bicarbonate 31, anion gap of 3, BUN 30, creatinine 0.6, estimated GFR was 102 mL per minute. Glucose 164, calcium was 7.8, phosphorus 2.9, magnesium 2.6. ASSESSMENT: 1. Acute hypoxic respiratory failure secondary to cardiopulmonary arrest as well as COVID-19 pneumonia/acute respiratory distress syndrome. 2. Status post cardiopulmonary arrest. 3. COVID-19 positive with underlying psychiatric illness. 4. Deep vein thrombosis. 5. Subcutaneous emphysema with pneumomediastinum, but without any pneumothorax. 6. The patient has multiple other medical problems including: A. Hypotension; however, the patient is now normotensive and off Levophed. B. Hyperlipidemia. C. Benign prostatic hypertrophy. D. Restless legs syndrome. E. Hypernatremia, it has resolved. F. Severe protein-calorie malnutrition, serum albumin of 1.4. PLAN: To continue with all current management. We will contact his as she is planning to make a decision regarding withdrawal of care today. CARMEN GOODMAN MD DR: No JOB#: [id number] / [id number]
--- NOTE | 2020-06-30 11:22 | PDOC ---
PULMONARY PROGRESS NOTES DATE: 06/30/20 TIME: 11:18 Subjective Sedated AC mode on fentanyl versed fio2 100% desats easily small ett secretion PEEP 10 Vitals Vital Signs Date Time Temp Pulse Resp B/P (MAP) Pulse Ox O2 Delivery O2 Flow Rate FiO2 06/30/20 11:00 66 18 107/64 (78) 86 Ventilator 06/30/20 08:00 97.7 97.7 Comments Patient seen doing the , on visual exam he is in sync with the ventilator no paroxysmal breathing pattern no significant edema On physical exam today he does have some subcutaneous emphysema on vent sedated nc at neck short cv rrr no accessory muscle use no rash edema Labs Laboratory Tests Test 06/28/20 21:46 06/29/20 05:45 06/29/20 08:00 06/29/20 15:23 Glucose (Fingerstick) 184 mg/dL (70-99) White Blood Count 7.8 x10^3/uL (4.0-11.0) Red Blood Count 3.20 x10^6/uL (4.30-5.70) Hemoglobin 10.1 g/dL (13.0-17.5) Hematocrit 30.5 % (39.0-53.0) Mean Corpuscular Volume 95 fL (79-100) Mean Corpuscular Hemoglobin 32 pg (25-35) Mean Corpuscular Hemoglobin Concent 33 g/dL (31-37) Red Cell Distribution Width 15.0 % (11.5-14.5) Platelet Count 114 x10^3/uL (140-400) Sodium Level 145 mmol/L (136-145) Potassium Level 4.9 mmol/L (3.5-5.1) Chloride Level 112 mmol/L (98-107) Carbon Dioxide Level 33 mmol/L (21-32) Anion Gap 0 (6-14) Blood Urea Nitrogen 32 mg/dL (8-26) Creatinine 0.7 mg/dL (0.7-1.3) Estimated GFR (Cockcroft-Gault) 111.2 Glucose Level 178 mg/dL (70-99) Calcium Level 7.8 mg/dL (8.5-10.1) O2 Saturation 92 % (92-99) Arterial Blood pH 7.42 (7.35-7.45) Arterial Blood pCO2 at Patient Temp 47 mmHg (35-46) Arterial Blood pO2 at Patient Temp 65 mmHg (65-108) Arterial Blood HCO3 30 mmol/L (21-28) Arterial Blood Base Excess 5 mmol/L (-3-3) FiO2 100%+10 Valproic Acid (Depakene) Level 8 mcg/mL (50-100) Valproic Acid Last Dose Date 06/29/20 Valproic Acid Last Dose Time 0900 Test 06/29/20 16:58 06/30/20 06:00 06/30/20 07:30 Glucose (Fingerstick) 131 mg/dL (70-99) White Blood Count 8.0 x10^3/uL (4.0-11.0) Red Blood Count 3.28 x10^6/uL (4.30-5.70) Hemoglobin 10.3 g/dL (13.0-17.5) Hematocrit 31.3 % (39.0-53.0) Mean Corpuscular Volume 96 fL (79-100) Mean Corpuscular Hemoglobin 31 pg (25-35) Mean Corpuscular Hemoglobin Concent 33 g/dL (31-37) Red Cell Distribution Width 15.3 % (11.5-14.5) Platelet Count 107 x10^3/uL (140-400) Neutrophils (%) (Auto) 97 % (31-73) Lymphocytes (%) (Auto) 2 % (24-48) Monocytes (%) (Auto) 2 % (0-9) Eosinophils (%) (Auto) 0 % (0-3) Basophils (%) (Auto) 0 % (0-3) Neutrophils # (Auto) 7.7 x10^3/uL (1.8-7.7) Lymphocytes # (Auto) 0.1 x10^3/uL (1.0-4.8) Monocytes # (Auto) 0.1 x10^3/uL (0.0-1.1) Eosinophils # (Auto) 0.0 x10^3/uL (0.0-0.7) Basophils # (Auto) 0.0 x10^3/uL (0.0-0.2) Sodium Level 145 mmol/L (136-145) Potassium Level 5.0 mmol/L (3.5-5.1) Chloride Level 111 mmol/L (98-107) Carbon Dioxide Level 31 mmol/L (21-32) Anion Gap 3 (6-14) Blood Urea Nitrogen 30 mg/dL (8-26) Creatinine 0.6 mg/dL (0.7-1.3) Estimated GFR (Cockcroft-Gault) 132.8 Glucose Level 164 mg/dL (70-99) Calcium Level 7.8 mg/dL (8.5-10.1) Phosphorus Level 2.9 mg/dL (2.6-4.7) Magnesium Level 2.6 mg/dL (1.8-2.4) O2 Saturation 90 % (92-99) Arterial Blood pH 7.38 (7.35-7.45) Arterial Blood pCO2 at Patient Temp 49 mmHg (35-46) Arterial Blood pO2 at Patient Temp 62 mmHg (65-108) Arterial Blood HCO3 29 mmol/L (21-28) Arterial Blood Base Excess 3 mmol/L (-3-3) FiO2 100 Laboratory Tests Test 06/29/20 15:23 06/29/20 16:58 06/30/20 06:00 06/30/20 07:30 Valproic Acid (Depakene) Level 8 mcg/mL (50-100) Valproic Acid Last Dose Date 06/29/20 Valproic Acid Last Dose Time 0900 Glucose (Fingerstick) 131 mg/dL (70-99) White Blood Count 8.0 x10^3/uL (4.0-11.0) Red Blood Count 3.28 x10^6/uL (4.30-5.70) Hemoglobin 10.3 g/dL (13.0-17.5) Hematocrit 31.3 % (39.0-53.0) Mean Corpuscular Volume 96 fL (79-100) Mean Corpuscular Hemoglobin 31 pg (25-35) Mean Corpuscular Hemoglobin Concent 33 g/dL (31-37) Red Cell Distribution Width 15.3 % (11.5-14.5) Platelet Count 107 x10^3/uL (140-400) Neutrophils (%) (Auto) 97 % (31-73) Lymphocytes (%) (Auto) 2 % (24-48) Monocytes (%) (Auto) 2 % (0-9) Eosinophils (%) (Auto) 0 % (0-3) Basophils (%) (Auto) 0 % (0-3) Neutrophils # (Auto) 7.7 x10^3/uL (1.8-7.7) Lymphocytes # (Auto) 0.1 x10^3/uL (1.0-4.8) Monocytes # (Auto) 0.1 x10^3/uL (0.0-1.1) Eosinophils # (Auto) 0.0 x10^3/uL (0.0-0.7) Basophils # (Auto) 0.0 x10^3/uL (0.0-0.2) Sodium Level 145 mmol/L (136-145) Potassium Level 5.0 mmol/L (3.5-5.1) Chloride Level 111 mmol/L (98-107) Carbon Dioxide Level 31 mmol/L (21-32) Anion Gap 3 (6-14) Blood Urea Nitrogen 30 mg/dL (8-26) Creatinine 0.6 mg/dL (0.7-1.3) Estimated GFR (Cockcroft-Gault) 132.8 Glucose Level 164 mg/dL (70-99) Calcium Level 7.8 mg/dL (8.5-10.1) Phosphorus Level 2.9 mg/dL (2.6-4.7) Magnesium Level 2.6 mg/dL (1.8-2.4) O2 Saturation 90 % (92-99) Arterial Blood pH 7.38 (7.35-7.45) Arterial Blood pCO2 at Patient Temp 49 mmHg (35-46) Arterial Blood pO2 at Patient Temp 62 mmHg (65-108) Arterial Blood HCO3 29 mmol/L (21-28) Arterial Blood Base Excess 3 mmol/L (-3-3) FiO2 100 Medications Active Scripts Medications Dose Route/Sig Max Daily Dose Days Date Category Trazodone Hcl 100 Mg Tablet 100 Mg PO HS 06/23/20 Reported Simvastatin 40 Mg Tablet 40 Mg PO HS 06/23/20 Reported Quetiapine Fumarate ER (Quetiapine Fumarate) 400 Mg Tab.er.24h 150 Mg PO BID 06/23/20 Reported Mirapex (Pramipexole Di-Hcl) 0.25 Mg Tablet 0.5 Mg PO BID 06/23/20 Reported Zyprexa (Olanzapine) 2.5 Mg Tablet 2.5 Mg PO DAILY 06/23/20 Reported Remeron (Mirtazapine) 15 Mg Tablet 7.5 Mg PO DAILY 06/23/20 Reported Namenda (Memantine Hcl) 10 Mg Tablet 10 Mg PO DAILY 06/23/20 Reported Fluoxetine Hcl 40 Mg Capsule 40 Mg PO DAILY 06/23/20 Reported Finasteride 5 Mg Tablet 5 Mg PO DAILY 06/23/20 Reported Aricept (Donepezil Hcl) 10 Mg Tablet 1 Tab PO QHS 30 06/23/20 Reported Depakote (Divalproex Sodium) 500 Mg Tablet.dr 125 Mg PO DAILY 06/23/20 Reported D3-50 (Cholecalciferol (Vitamin D3)) 50,000 Unit Capsule 50,000 Unit PO WEEKLY 06/23/20 Reported Aspirin 81 Mg Tab.chew 1 Tab PO DAILY 06/23/20 Reported Acetaminophen 325 Mg Tablet 2 Tab PO PRN Q4-6HRS PRN 24 06/23/20 Reported Comments cxr reviewed ett ok 1. Stable diffuse right greater than left lung infiltrate with suspected small to trace pleural effusions. 2. Decreased soft tissue emphysema. Impression . IMPRESSION: 1. Acute hypoxic respiratory failure secondary to cp arrest and COVID-19 pneumonia/acute respiratory distress syndrome. 2. Status post cp arrest. 3. Abnormal chest x-ray with diffuse lung infiltrates consistent with COVID-19 pneumonia. 4. COVID-19 positive. 5. Abnormal LFTs, l 6. Underlying psychiatric illnesses. 7. DVT 8. Subcutaneous emphysema suspect ruptured alveolar chest x-ray reveals no ptx Plan . Chest x-ray reviewed no ptx on fi02 100%, peep 10 desat easily cont sedation cont vent support, setting reviewed Continue current support Titrate FiO2 for saturations above 94% IV steroid, cont 40 q 8hrs Status post convalescent plasma Monitor lab Full dose anticoagulate discussed w rn, rt critically ill Total cumulative critical care time of 30-minute no overlap is coming in today. likely wants to withdraw care RANJAN GONZALEZ MD Jun 30, 2020 11:21
--- NOTE | 2020-06-30 13:11 | NUR ---
Family notified of patient's continued hypoxia, family members able to come up to see patient. Dr. Jackson spoke with patient's who decided to withdraw care. Patient extubated at 1230, family sitting outside of patient's room. Fentanyl continuously infusing as is versed, PRN ativan ordered q15 minutes per Dr. Bray.
--- NOTE | 2020-06-30 13:39 | RAD ---
PORTABLE CHEST 1V INDICATION: rf COMPARISON STUDY: 06/29/2020. FINDINGS: Life Support Devices: Stable endotracheal tube, enteric tube, right subclavian central venous catheter. Lungs: Normal lung volume. Stable bilateral perihilar and basilar heterogeneous opacities. Indistinct pulmonary vasculature. Pleura: Stable pleural spaces. Heart and Mediastinum: Stable cardiomediastinal silhouette and great vessels. IMPRESSION: 1. Stable life support devices. 2. Stable bilateral perihilar and basilar heterogeneous opacities. Electronically signed by: Jeremy Casas MD (06/30/2020 1:37 PM) [id number]
--- NOTE | 2020-06-30 14:22 | NUR ---
Patient at 1359 with family by bedside. Dr. Bray and Dr. Jackson notified of time of . Not a candidate per MTN. Patient's took patient belongings home.
== END 2020-06-30 13:59 | disposition expired | DRG 870 ==
LOC: 1 WEST ICU 11:02
PROVIDERS: ADMIT Internal Medicine; ATTEND Internal Medicine
PROC: 5A1955Z Respiratory Ventilation, Greater than 96 Consecutive Hours (ICD-10-PCS; principal; 2020-06-23)
PROC: XW13325 Transfusion of Convalescent Plasma (Nonautologous) into Peripheral Vein, Percutaneous Approach, New Technology Group 5 (ICD-10-PCS; 2020-06-23)
PROC: 02HV33Z Insertion of Infusion Device into Superior Vena Cava, Percutaneous Approach (ICD-10-PCS; 2020-06-24)
DX: A41.9 Sepsis, unspecified organism (principal); U07.1 COVID-19; J96.01 Acute respiratory failure with hypoxia; E43 Unspecified severe protein-calorie malnutrition; J12.89 Other viral pneumonia; E87.0 Hyperosmolality and hypernatremia; I46.9 Cardiac arrest, cause unspecified; E78.5 Hyperlipidemia, unspecified; F01.50 Vascular dementia, unspecified severity, without behavioral disturbance, psychotic disturbance, mood disturbance, and anxiety; E66.9 Obesity, unspecified; F02.80 Dementia in other diseases classified elsewhere, unspecified severity, without behavioral disturbance, psychotic disturbance, mood disturbance, and anxiety; F32.9 Major depressive disorder, single episode, unspecified; G25.81 Restless legs syndrome; G30.9 Alzheimer's disease, unspecified; H90.5 Unspecified sensorineural hearing loss; I10 Essential (primary) hypertension; N40.0 Benign prostatic hyperplasia without lower urinary tract symptoms; Y95 Nosocomial condition; Z68.26 Body mass index [BMI] 26.0-26.9, adult; Z79.899 Other long term (current) drug therapy; J98.2 Interstitial emphysema
CPT/HCPCS: 36415; 36600; 71045; 80048; 80053; 80164; 82805; 82962; 83605; 83735; 84100; 84484; 85007; 85025; 85027; 85379; 85610; 86140; 86850; 86900; 86901; 86927; 93970; 94002; 94003; C9113; J1650; J2060; J2250; J2543; J2920; J2930; J3010; J3490; J7030; J7060; G0378; P9017